=== PATIENT | female | born 1980 | race Two or more races ===

== ENCOUNTER → 2017-10-18 | Outpatient (CLI) | payer MEDICAID ==
[2015-10-10 09:30] VITALS: BMI 44.2
[~2017-10-18] MED LIST: BACDS PO; DEPRESSION MED; IBU600 PO; IBUP800T37 PO; INSU100V24 SUBQ; INSU500V2 SQ; INSULIN; LOR5/325 PO; METF-411 PO; METF-420; NIFE20CA8 PO; NPH,100V12 SQ; ONDA4TAB97 PO; PER PO; PREN-127 PO; SLEEP MED
--- NOTE | 2017-10-18 17:43 | RADIOLOGY IMAGING REPORT ---
[place]AC[place] [facility] [place]IENT NAME: Penny Gleason : 1980 MR: [id number] V: [id number] EXAM DATE: ORDERING PHYSICIAN: ROSANNA ANAND TECHNOLOGIST: [facility] [place] Patient: Penny Gleason : 1980 Visit/Account:[id number] Date of Sevice: 10/18/2017 ADDENDUM #1 Another attempt was made to reach ROSANNA PINEDAIAN at 10/19/2017 4:35 PM.. I was able to relate the results of the examination at that time. Report Dictated By: Vilma Bear MD at 10/19/2017 4:31 PM Report E-Signed By: Vilma Bear MD at 10/19/2017 4:35 PM ORIGINAL REPORT OB ANATOMICAL SURVEY HISTORY: Anatomic survey COMPARISON: None. TECHNIQUE: Transabdominal imaging was performed for assessment of the fetus and maternal pelvic s tructures. Transvaginal imaging was not performed. FINDINGS: Intrauterine gestations: One. presentation: Cephalic. heart rate: 153 bpm. Amniotic fluid volume: Normal; DEMETRIUS 16.4 cm; MVP 4.9 cm. Placenta: Posterior. Uterus: Gravid, otherwise grossly unremarkable where visualized. Maternal adnexa/ovaries: Grossly unremarkable, ovaries not visualized. Cervix: Grossly long and closed. Gestational Parameters: BPD: 5.09, less than 2nd percentile HC: 19.51 cm, less than 2nd percentile AC: 17.42 cm, less than 2nd percentile FL: 3.82 cm, less than 2nd percentile Average ultrasound age (AUA): 22 weeks/ zero days Estimated age based on LMP: 25 weeks/ two days Estimated weight (EFW): 484 grams +/- 71 grams Anatomic Survey: Intracranial structures, 4-chamber heart, stomach, kidneys, urinary bladder, spine, 3-vessel cord and cord insertion are unremarkable. Two upper and two lower extremities visualized. The left ventricul ar outflow tract was not visualized although the right ventricular outflow tract appeared normal IMPRESSION: There is a single viable fetus in cephalic presentation with an estimated gestational age by [facility] ents of 22 weeks. Estimated gestational age by last menstrual period should be 25 weeks and two days . The measurements are less than the 2nd percentile. A message was left with the on-call boiler operator helper for ROSANNA ANAND at 10/18/2017 5:39 PM. Report Dictated By: Vilma Bear MD at 10/18/2017 5:24 PM Report E-Signed By: Vilma Bear MD at 10/18/2017 5:39 PM WSN:[email or web address]
== END ==
LOC: US 10-04 01:53
PROVIDERS: ATTEND Student in an Organized Health Care Education/Training Program
DX: O24.312 Unspecified pre-existing diabetes mellitus in pregnancy, second trimester (principal)
CPT/HCPCS: 76811

== ENCOUNTER → 2017-10-26 | Outpatient (CLI) | payer MEDICAID ==
[2015-10-10 09:30] VITALS: BMI 44.2
--- NOTE | 2017-10-26 15:34 | RADIOLOGY IMAGING REPORT ---
FACILITY: [facility] - [place] PATIENT NAME: Penny Gleason : 1980 MR: [id number] V: [id number] EXAM DATE: ORDERING PHYSICIAN: ROSANNA ANAND TECHNOLOGIST: Location: [facility] Patient: Penny Gleason : 1980 Visit/Account:[id number] Date of Sevice: 10/26/2017 EXAMINATION: Ultrasound transabdominal OB > 14 weeks followup HISTORY: , complete anatomy, 2nd trimester. LVOT not visualized on previous exam. COMPARISON: None. TECHNIQUE: Transabdominal imaging was performed for assessment of the fetus. Transvaginal imaging was not perfor med. FINDINGS: Placenta: Posterior without previa. The inferior placental tip is over 5 cm above the internal cervi mike os. Uterus: gravid, otherwise normal Cervix: Long and closed. Intrauterine gestations: One. presentation: Breech heart rate: Normal and regular at 158 bpm Amniotic fluid index: 17.3 cm Largest amniotic fluid pocket: 5.2 cm The left ventricular outflow tract is unremarkable. Remaining anatomy was visualized on the pr ior exam. IMPRESSION: 1. Single live intrauterine gestation. 2. Left ventricular outflow tract is unremarkable, this completes the anatomic survey. Report Dictated By: Ana Murray MD at 10/26/2017 3:23 PM Report E-Signed By: Ana Murray MD at 10/26/2017 3:30 PM WSN:[email or web address]
== END ==
LOC: US 01:04
PROVIDERS: ATTEND Student in an Organized Health Care Education/Training Program
DX: O24.312 Unspecified pre-existing diabetes mellitus in pregnancy, second trimester (principal)
CPT/HCPCS: 76815

== ENCOUNTER 2018-01-10 06:24 | Observation (INO) | payer MEDICAID ==
[2015-10-10 09:30] VITALS: BMI 44.2
[~2018-01-10 06:24] MED LIST changes: -METF-411 PO; +METF-450 PO
[2018-01-10 06:45] VITALS: BP 143/77
[2018-01-10] MEDS ORDERED: MAGNESIUM SULF 20 GM/500 ML IV 500 ML IV SCH (07:27)
[2018-01-10] MEDS ORDERED: CALCIUM GLUC 10% 100 MG/ML VL IVP ONE (07:30)
[2018-01-10] MEDS ORDERED: MAGNESIUM SUL* 2 GM/50 ML IVPB 50 ML IVPB ONE (07:30)
[2018-01-10] MEDS ORDERED: BETAMETHASONE/ACETATE 6 MG/1ML IM ONLY ONE (07:30)
[2018-01-10] MEDS ORDERED: PENICILLIN G 5 MILLUN/100 ML 100 ML IVPB ONE (07:30)
[2018-01-10] MEDS ORDERED: MAGNESIUM SUL* 4 GM/100 ML BAG 100 ML IVPB ONE (07:30)
[2018-01-10 07:43] LABS: PLATELET COUNT, AUTOMATED 133 K/uL (150-450)
[2018-01-10] MEDS ORDERED: GLY5 FT (07:53)
[2018-01-10] MEDS ORDERED: LEVO50TA86 PO (07:53)
[2018-01-10] MEDS: LR(*) 1000 ML BAG 1,000 ML IV PRN ×2 (07:54→11:48)
[2018-01-10] MEDS: NIFEdipine 10 MG CAP PO PRN ×2 (08:19→09:14)
[2018-01-10] MEDS ORDERED: metFORMIN HCL 500 MG TAB PO SCH ×3 (09:00→17:00)
--- NOTE | 2018-01-10 09:19 | History & Physical ---
History of Present Illness Age of Patient: 37 : 2 Para or TPAL: 1 EDC per LMP: Jan 25, 2018 EDC per U/S: Feb 23, 2018 Estimated Gestational Age: 33.5 Chief Complaint Contractions, Vaginal Bleeding History of Present Illness Patient is a 37-year-old at 33-5/7 weeks gestation by a 1st trimester ultrasound that is not consistent with her LMP who presents to labor and delivery with a chief complaint of Naz contractions and vaginal bleeding. Patient reports that she has been having contractions since yesterday afternoon early evening that have been very irregular and inconsistent. Patient reports that she noticed significant amount of bleeding on her underwear and she eats around 3:00 this morning. Patient reports that she woke up again with more spotting and decided is time to come in the labor and delivery. Patient reports that she's had no bleeding since then. Reports good movement. No loss of amniotic fluid. Patient's history is comp located by transfer of care from [facility] practice residents she did have a 1st trimester ultrasound at [id number] but no ultrasound with a office or hospital until 22 weeks. Patient transferred from the family practice residency at 30 weeks 2 [facility]. Her is complicated by type II diabetes for which she takes 1000 mg of metformin in the morning and 1500 mg in the evening. Patient was started on glyburide during this by Dr. Stark in order to better control the patient's blood sugars. Patient was initially started upon 1st meeting [facility] she is currently on glyburide 7.5 mg twice a day. Patient underwent estimated weight on December 18 that is documented to be 2194 g which is in the 99th percentile with an DEMETRIUS of 17 per verbal checkout with Dr. Stark patient has had a more recent ultrasound the continues to be in the 99th percentile but these records are currently unavailable. History Patient's Blood Type: A Positive Rubella Status: Non-Immune Group B Strep Screen: Unknown Obstetrical History: History of C/S X 1 for intolerance. Desires Repeat Poorly controlled Type 2 Diabetic, Last A1C was 12/13/17 and was 7.1 Past Medical History: Significant for type II diabetes unknown age of diagnosis. Poorly controlled, noncompliant Hypothyroid levothyroxine 50 g by mouth daily Allergies: Coded Allergies: No Known Drug Allergies (Verified , 09/19/08) Social History: FOB = Cornelius Francois, no T/E/D Med Rec Home Meds Active Scripts Metformin Hcl (METFORMIN HCL) 500 Mg Tablet, 500 MG PO QDAY, #60 TAB 3 Refills Prov:LUDY PEÑA 10/13/15 Reported Medications Levothyroxine Sodium (LEVOTHYROXINE SODIUM) 50 Mcg Tablet, 50 MCG PO QDAY, TAB 01/10/18 Glyburide (GLYBURIDE) 5 Mg Tab, 5 MG FT BID, TAB 01/10/18 Vits W-Ca,Fe,Fa(<1MG) ( VITAMINS) 1 Each Tablet, 1 EACH PO DAILY, TAB 09/01/15 Discontinued Reported Medications Trimethoprim/Sulfamethoxazole (Bactrim Ds 160-800 Mg) 1 Ea Tab, 1 EA PO BID for 3 Days, 0 Refills 09/19/08 Ibuprofen (Motrin) 600 Mg Tab, 600 MG PO TID, #15 0 Refills 09/19/08 Discontinued Scripts Oxycodone/Acetaminophen (OXYCODONE/ACETAMINOPHEN 5MG/325 MG) 5 Mg/325 Mg Tab, 1- 2 TAB PO Q4H PRN for PAIN, #30 TAB 0 Refills Prov:STEFFANY OWSUU MD 10/11/15 Ibuprofen (IBUPROFEN) 800 Mg Tablet, 800 MG PO Q8H@00,08,16, #60 TAB 0 Refills Prov:STEFFANY OWUSU MD 10/11/15 Ondansetron Hcl (ZOFRAN) 4 Mg Tablet, 4 MG PO Q6H PRN for NAUSEA/VOMITING, #15 1 Refill Prov:JUSTIN JETT DO 03/01/15 Review of Systems All Systems Reviewed/Normal: Yes, Except as Noted Constitutional: No Fever, No Weight Loss, No Weight Gain, No Chills, No Night Sweats, No Other Neurological: No Syncope, No Confusion, No Weakness, No Dizziness, No Slurred Speech, No Other Eyes: No Vision Change, No Loss of Vision, No Photophobia, No Other ENT: No Hearing Loss, No Sinus Congestion, No Sore Throat, No Ear Ache, No Tinnitus, No Other Cardiovascular: No Chest Pain, No Palpitations, No Orthostatic Hypotension, No Other Respiratory: No Shortness of Breath, No Cough, No Wheezing, No Other Gastrointestinal: No Nausea, No Vomiting, No Diarrhea, No Dysphagia, No Constipation, No Early Satiety, No Hematemesis, No Hematochezia, No Melena, No Abdominal Pain, No Other Genitourinary: No Dysuria, No Hematuria, No Urinary Incontinence, No Other Musculoskeletal: No Pain, No Sprain, No Strain, No Impaired Mobility, No Other Psychiatric: No Depression, No Anxiety, No Other Exam General Exam Vital Signs Vital Signs Date Time Temp Pulse Resp B/P (MAP) Pulse Ox O2 Delivery O2 Flow Rate FiO2 01/10/18 06:45 97.2 61 18 143/77 (99) 97 Room Air General Apperance: Alert/Awake/No Acute Distress Neuro: No Gross deficits Eyes: Normal Extraocular Movement & Vison ENT: Normal Cardiovascular: Regular Rate and Rhythm Respiratory: No Respiratory Distress, Clear to Auscultation Abdomen: Soft, Non-Tender, Non-Distended : Normal Musculoskeletal: No Weakness/Pain Extremities: No Cyanosis,Clubbing or Edema Integumentary: Skin Intact without Lesions or Rash Psychological: Alert & Oriented X3, Appropriate Mood & Affect Vaginal Discharge/Fluid?: Bloody Show Cervical Dialation: 1 Cervical Effacement (%): 50 Cervical Consistency: Moderate Station: -3 Presentation: Vertex Uterine Contractions(Q min): 2 Uterine Contraction Strength: Moderate UC Resting Tone: Soft Fetus Feeling Movement?: Yes Estimated Weight(grams): 150 Heart Tone Variabilty: Moderate FHT Accelerations: 15X15 FHT Decelerations: None FHT Category: I Medical Decision Making Data Points Result Diagram: 01/10/18 0730 Pre-Admit Course Medical Record Review: Yes VTE Prophylasis: Adult Deep Vein Thrombosis/Pulmonary: No Assessment and Plan 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 With recheck of cervix patient's magnesium infusion was stopped and she did receive 20 mg of nifedipine by mouth for contractions with a 2nd dose 30 minutes later. We'll continue to monitor patient's contractions and hopefully achieve tocolyse this with nifedipine. Could consider having patient be monitored for greater than 24 hours and receive her 2nd dose of betamethasone around 8:00 tomorrow morning on 01/11/2018. Will recheck cervix in 2-3 hours if no cervical change we'll monitor contractions and treat symptomatic only. Patient has received 1 L of IV fluid bolus may consider additional IV hydration. Currently stable no need for transport at this time. (3) Diabetes mellitus affecting in third trimester *Optional Permanent Comment*: Pregestational, Type 2 Diabetes Last Edited By: Ludy Peña on Oct 13, 2015 09:01 Onset Date: ~ 10/2015 Status: Chronic Assessment & Plan: Patient is a type II poorly controlled noncompliant diabetic who is currently taking metformin 1000 mg in the morning 1500 mg in the evening with glyburide 7.5 mg a.m. and p.m. Her blood sugar upon presentation this morning was 86. Patient did receive betamethasone which is expected to make patient sugars even more poorly controlled. Will consider the possibility of needing to start sliding scale insulin secondary to vitamins affect. Patient able to tolerate diabetic diet. Will monitor sugars postprandial. If need to change to sliding scale insulin will need to do preprandial in order to calculate sliding scale dosage. We'll continue to monitor patient closely. Will continue patient's home medications accordingly. LUDY PEÑA DO Jan 10, 2018 09:19
[2018-01-10] MEDS ORDERED: glyBURIDE 5 MG TAB PO SCH (09:54)
[2018-01-10] MEDS ORDERED: LEVOTHYROXINE SOD 0.05 MG TAB PO ONE (11:00)
[2018-01-10] MEDS ORDERED: ACETAMINOPHEN 500 MG TAB PO PRN (11:50)
[2018-01-10] MEDS ORDERED: PENICILLIN G 2.5 MILLUN/100 ML 100 ML IVPB SCH (12:00)
[2018-01-10] MEDS: NIFEdipine 10 MG CAP PO SCH ×2 (12:04→15:00)
--- NOTE | 2018-01-10 15:05 | Labor Progress Note ---
Labor Subjective Progress Notes Subjective Reports only feeling contractions every 30-40 minutes. Denies any further vaginal bleeding. Pain less then this morning. Good movement. Feeling Movement?: Yes Vaginal Discharge/Fluid: No Bloody Show, No Clear Fluid, No Bloody Fluid, No Green Tinged Fluid, No Dark Green Fluid, No Mucous, No Small Amount, No Moderate Amount, No Large Amount, No Other Labor Pain: Mild Neurological: No Headache, No Other Eyes: No Visual Disturbances Labor Objective Vital Signs Vital Signs Date Time Temp Pulse Resp B/P (MAP) Pulse Ox O2 Delivery O2 Flow Rate FiO2 01/10/18 06:45 97.2 61 18 143/77 (99) 97 Room Air Cervical Dialation: 1 Cervical Effacement (%): 50 Cervical Consistency: Firm Cervical Position: Posterior Station: -3 Uterine Contraction Strength: Moderate UC Resting Tone: Soft Fetus Heart Tone Variabilty: Moderate FHT Accelerations: 15X15 FHT Decelerations: None FHT Category: I Other Result Diagram: 01/10/18 0730 Assessment and Plan 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 No cervical change since 0800. Discussed options with patient to include 24 monitoring with 2nd dose of Betamethasone tomorrow morning or consider discharge home and follow up as an outpatient in the clinic. Will send pt home with precautions and procardia. Called [facility] and pt is set up to get Betamethasone tomorrow morning at 9 am. (3) Diabetes mellitus affecting in third trimester *Optional Permanent Comment*: Pregestational, Type 2 Diabetes Last Edited By: Ludy Peña on Oct 13, 2015 09:01 Onset Date: ~ 10/2015 Status: Chronic LUDY PEÑA DO Jan 10, 2018 15:05
--- NOTE | 2018-01-10 15:09 | OB/GYN Discharge Summary ---
Discharge Summary Reason for Hosp/Final Diag: (1) 33 weeks gestation of (2) uterine contractions in third trimester, antepartum Hospital Course & Plan: Presented with contractions and was given betamethasone and nifedipine with a significant decrease in contractions. Pt made no cervical change from 8 am to 3 pm. Discussed options with patient. Pt desires to be discharged home. (3) Diabetes mellitus affecting in third trimester *Optional Permanent Comment*: Pregestational, Type 2 Diabetes Last Edited By: Ludy Peña on Oct 13, 2015 09:01 Onset Date: ~ 10/2015 Status: Chronic Lates Vital Signs Vital Signs Date Time Temp Pulse Resp B/P (MAP) Pulse Ox O2 Delivery O2 Flow Rate FiO2 01/10/18 06:45 97.2 61 18 143/77 (99) 97 Room Air Weight (Pounds): 219 Result Diagram: 01/10/18729 Condition: Improved Discharge: Home Home Meds Active Scripts Metformin Hcl (METFORMIN HCL) 500 Mg Tablet, 500 MG PO QDAY, #60 TAB 3 Refills Prov:LUDY PEÑA DO 10/13/15 Reported Medications Levothyroxine Sodium (LEVOTHYROXINE SODIUM) 50 Mcg Tablet, 50 MCG PO QDAY, TAB 01/10/18 Glyburide (GLYBURIDE) 5 Mg Tab, 5 MG FT BID, TAB 01/10/18 Vits W-Ca,Fe,Fa(<1MG) ( VITAMINS) 1 Each Tablet, 1 EACH PO DAILY, TAB 09/01/15 Discontinued Reported Medications Trimethoprim/Sulfamethoxazole (Bactrim Ds 160-800 Mg) 1 Ea Tab, 1 EA PO BID for 3 Days, 0 Refills 09/19/08 Ibuprofen (Motrin) 600 Mg Tab, 600 MG PO TID, #15 0 Refills 09/19/08 Discontinued Scripts Oxycodone/Acetaminophen (OXYCODONE/ACETAMINOPHEN 5MG/325 MG) 5 Mg/325 Mg Tab, 1- 2 TAB PO Q4H PRN for PAIN, #30 TAB 0 Refills Prov:STEFFANY OWUSU MD 10/11/15 Ibuprofen (IBUPROFEN) 800 Mg Tablet, 800 MG PO Q8H@00,08,16, #60 TAB 0 Refills Prov:STEFFANY OWUSU MD 10/11/15 Ondansetron Hcl (ZOFRAN) 4 Mg Tablet, 4 MG PO Q6H PRN for NAUSEA/VOMITING, #15 1 Refill Prov:JUSTIN JETT DO 03/01/15 Discharge Diet: As Tolerates Special Instructions: F/U IN [facility] @0900AM TOMORROW 01/11 LUDY PEÑA DO Jan 10, 2018 15:09
[2018-01-10] MEDS ORDERED: NIFE10CA38 PO (15:19)
[2018-01-10] MEDS ORDERED: NIFE20CA8 PO (15:50)
[2018-01-11] MEDS ORDERED: PENICILLIN G 2.5 MILLUN/100 ML 100 ML IVPB SCH
[2018-01-11] MEDS ORDERED: LEVOTHYROXINE SOD 0.05 MG TAB PO SCH (06:00)
== END 2018-01-10 15:08 | disposition home or self-care (01) ==
LOC: OB 06:24
PROVIDERS: ADMIT Student in an Organized Health Care Education/Training Program; ATTEND Student in an Organized Health Care Education/Training Program
DX: O60.03 Preterm labor without delivery, third trimester (principal); O24.113 Pre-existing type 2 diabetes mellitus, in pregnancy, third trimester; O46.93 Antepartum hemorrhage, unspecified, third trimester; E11.9 Type 2 diabetes mellitus without complications; Z3A.33 33 weeks gestation of pregnancy; Z79.84 Long term (current) use of oral hypoglycemic drugs
CPT/HCPCS: 36416; 81001; 82948; 85025; 86850; 86900; 86901; G0378; G0379; J0702; J3475; J7120

== ENCOUNTER 2018-01-13 08:36 | Inpatient (IN) | payer MEDICAID ==
[2018-01-13] VITALS (31 sets, daily range): BP systolic 96–189; BP diastolic 71–102; Ht 154.9 cm; Wt 99.3 kg
[~2018-01-13] VITALS: Ht 154.9 cm; Wt 99.3 kg
[~2018-01-13 08:36] MED LIST changes: +GLY5 FT; +LEVO50TA86 PO; +NIFE10CA38 PO
[2018-01-13] MEDS ORDERED: METOCLOPRAMIDE 10 MG/2 ML SDV ONE (09:23)
[2018-01-13] MEDS ORDERED: FAMOTIDINE(*) 20MG/50ML PREMIX 50 ML IVPB ONE (09:23)
[2018-01-13] MEDS ORDERED: ceFAZolin(*) 2GM/D5W 50ML 50 ML IVPB ONE ×2 (09:24→10:12)
[2018-01-13 09:38] LABS: PLATELET COUNT, AUTOMATED 157 K/uL (150-450)
[2018-01-13] MEDS ORDERED: ONDANSETRON 4 MG/2 ML VIAL ONE (09:54)
[2018-01-13] MEDS ORDERED: OXYTOCIN 10 UNIT/ML SDV ONE ×2 (09:54→10:50)
[2018-01-13] MEDS ORDERED: MORPHINE PF 5 MG/10 ML AMP ONE (09:55)
[2018-01-13] MEDS ORDERED: fentaNYL CITR 100 MCG/2 ML AMP ONE (09:55)
[2018-01-13] MEDS ORDERED: LR(*) 1000 ML BAG 1,000 ML IV SCH (10:12)
[2018-01-13] MEDS ORDERED: FAMOTIDINE 20 MG/50 ML PREMIX IVPB ONE (10:15)
[2018-01-13] MEDS ORDERED: METOCLOPRAMIDE 10 MG/2 ML SDV IVP ONE (10:15)
--- NOTE | 2018-01-13 10:16 | History & Physical ---
History of Present Illness EDC per LMP: Jan 25, 2018 EDC per U/S: Feb 23, 2018 Chief Complaint Bleeding and decreased movement History of Present Illness 37-year-old at 34w1d by 22wk ultrasound (not consistent with LMP) presents with bleeding and decreased movement. She had come in for regular uterine contractions early this last week. She was given steroids at that time. She then went home and continued to have vaginal bleeding since yesterday, contractions and decreased movement. She had late care and is dated by 22wk US at [facility] that placed her due date at 02/23/18. Based on LMP her due date should be 01/25/18. She has multiple complications. She has DM2 (on Metformin 2500mg daily and Glyburide 5mg BID), gestational HTN, history of , breech presentation and hypothyroid. [facility] She then transferred at 29wks to [facility]. History Patient's Blood Type: A Positive Rubella Status: Non-Immune Group B Strep Screen: Unknown Obstetrical History: G1: 37wk primary CD for NRFHT G2: Present Past Medical History: PMH: See PNR PSH: , colposcopy Allergies: Coded Allergies: No Known Drug Allergies (Verified , 09/19/08) Social History: FOB = Cornelius Francois, no T/E/D Med Rec Home Meds Active Scripts Nifedipine (NIFEDIPINE) 20 Mg Capsule, 20 MG PO Q4-6H PRN for CONTRACTIONS, #20 CAPSULE 1 Refill Prov:LUDY VELAZQUEZ DO 01/10/18 Metformin Hcl (METFORMIN HCL) 500 Mg Tablet, 500 MG PO QDAY, #60 TAB 3 Refills Prov:LUDY VELAZQUEZ DO 10/13/15 Reported Medications Levothyroxine Sodium (LEVOTHYROXINE SODIUM) 50 Mcg Tablet, 50 MCG PO QDAY, TAB 01/10/18 Glyburide (GLYBURIDE) 5 Mg Tab, 5 MG FT BID, TAB 01/10/18 Vits W-Ca,Fe,Fa(<1MG) ( VITAMINS) 1 Each Tablet, 1 EACH PO DAILY, TAB 09/01/15 Discontinued Reported Medications Nifedipine (PROCARDIA) 10 Mg Capsule, 20 MG PO Q4-6H, #20 CAPSULE 1 Refill 01/10/18 Trimethoprim/Sulfamethoxazole (Bactrim Ds 160-800 Mg) 1 Ea Tab, 1 EA PO BID for 3 Days, 0 Refills 09/19/08 Ibuprofen (Motrin) 600 Mg Tab, 600 MG PO TID, #15 0 Refills 09/19/08 Discontinued Scripts Oxycodone/Acetaminophen (OXYCODONE/ACETAMINOPHEN 5MG/325 MG) 5 Mg/325 Mg Tab, 1- 2 TAB PO Q4H PRN for PAIN, #30 TAB 0 Refills Prov:STEFFANY OWUSU MD 10/11/15 Ibuprofen (IBUPROFEN) 800 Mg Tablet, 800 MG PO Q8H@00,08,16, #60 TAB 0 Refills Prov:STEFFANY OWUSU MD 10/11/15 Ondansetron Hcl (ZOFRAN) 4 Mg Tablet, 4 MG PO Q6H PRN for NAUSEA/VOMITING, #15 1 Refill Prov:JUSTIN JETT DO 03/01/15 Review of Systems Constitutional: No Fever Neurological: No Syncope Eyes: No Vision Change Cardiovascular: No Chest Pain Respiratory: No Shortness of Breath Gastrointestinal: No Nausea, No Vomiting, No Diarrhea Genitourinary: No Dysuria Musculoskeletal: No Pain Psychiatric: No Depression, No Anxiety Exam General Exam Vital Signs VS reviewed, BP 142/92 General Apperance: Alert/Awake/No Acute Distress Neuro: No Gross deficits Eyes: Normal Extraocular Movement & Vison Cardiovascular: Regular Rate and Rhythm Respiratory: No Respiratory Distress, Clear to Auscultation Abdomen: Soft, Non-Tender, Non-Distended, Gravid - Non-Tender : Normal Musculoskeletal: No Weakness/Pain Extremities: No Cyanosis,Clubbing or Edema Integumentary: Skin Intact without Lesions or Rash Psychological: Alert & Oriented X3, Appropriate Mood & Affect Cervical Dialation: 1 Cervical Effacement (%): 90 Cervical Consistency: Soft Cervical Position: Mid Presentation: Michael Breech Uterine Contractions(Q min): 8 Fetus Heart Tones: 165 Heart Tone Variabilty: Minimal FHT Accelerations: Absent FHT Decelerations: Late FHT Category: II, III Medical Decision Making Data Points Result Diagram: 01/13/1892401/13/18924 Assessment and Plan Problems: (1) Non-reassuring status Assessment & Plan: 37yo at 34w1d by 22wk ultrasound (38wks by LMP) presents with decreased movement. She has a category 2-3 tracing. She is having recurrent lates. I have recommended urgent delivery. Dr. Weston, sack filler, has also been able to discuss likelihood of shipping baby after delivery if difficulties. She is having normal show. DEMETRIUS 28cm growth is >99%ile. It is unclear of her dating is poor or if she has polyhydramnios and macrosomia. Will proceed with as soon as possible. (2) Gestational hypertension Assessment & Plan: BP is elevated. Will send urine from cath for random Pr:Cr. (3) Diabetes mellitus complicating , antepartum Assessment & Plan: Accucheck is 190. Will monitor . (4) Rubella non-immune status, antepartum Assessment & Plan: MMR . Problem Qualifiers (1) Gestational hypertension: Trimester: third trimester Qualified Codes: O13.3 - Gestational [- induced] hypertension without significant proteinuria, third trimester LIT SANCHES MD Jan 13, 2018 10:16
[2018-01-13] MEDS ORDERED: KETOROLAC 30 MG/ML VIAL ONE (10:49)
--- NOTE | 2018-01-13 11:08 | RADIOLOGY IMAGING REPORT ---
FACILITY: [facility] [place] PATIENT NAME: Penny Gleason : 1980 MR: [id number] V: [id number] EXAM DATE: ORDERING PHYSICIAN: LIT JARRELL TECHNOLOGIST: Location: [facility] [place] Patient: Penny Gleason : 1980 Visit/Account:[id number] Date of Sevice: 01/13/2018 OB LIMITED COMPARISON: None. HISTORY: Provided history is labor, gestational age 34 weeks 1 day. FINDINGS: NUMBER: One.. HEART RATE: Not measured/recorded POSITION: Breech PLACENTA LOCATION: Not assessed. AMNIOTIC FLUID: DEMETRIUS 28.64 cm; MVP 14.83 cm. A single growth parameter was measured on today's study, the abdominal circumference. According to e technologist notes, at this point the study was reportedly stopped by Dr. Jarrell "as they were t aking the patient to deliver". SIZE DATE ABD CIRCUMFERENCE: 36.70 cm 40 weeks 5 days The date of LMP was not provided. The ALISON could not be calculated. IMPRESSION: Limited study which was reportedly terminated prematurely by Dr. Jarrell, reportedly for emergency . There is a single intrauterine in breech presentation. cardiac activity wa s not assessed/recorded. Based on the limited provided images there are findings suggesting large for dates and polyhydramnios. Report Dictated By: Raymond Oliveira at 01/13/2018 10:53 AM Report E-Signed By: Raymond Oliveira at 01/13/2018 11:04 AM WSN:[id number]
[2018-01-13] MEDS ORDERED: DLR(*) 1000 ML BAG 1,000 ML IV PRN ×2 (11:48→11:51)
[2018-01-13] MEDS ORDERED: OXYTOCIN 30 UNIT/LR 500 ML 500 ML IV PRN (11:48)
--- NOTE | 2018-01-13 11:48 | Post Operative Note ---
Operative Note - PROOF TESTER Operative Day Date: Jan 13, 2018 Physicians Surgeon: Wesly Anesthesia: Spinal, Eufemia Chinchilla Diagnosis Pre-Op Diagnosis: IUP at 34w1d by 22wk US with category 3 tracing Poorly controlled GDMA2 Gestational HTN Post-Op Diagnosis: Same Delivery of viable male infant at 1048hrs weighing 3646g, Apgars not available Procedure Procedure(s): RLTCD Specimen Removed:(Maybe N/A): Placenta, umbilical cord gas Fluids Fluids: UOP: 50cc Estimated Blood Loss: 800cc LIT SANCHES MD Jan 13, 2018 11:48
[2018-01-13] MEDS ORDERED: PROMETHAZINE 25 MG/ML 1 ML AMP IVP PRN (11:50)
[2018-01-13] MEDS ORDERED: LANOLIN OINT 7 GM TUBE TP PRN (11:50)
[2018-01-13] MEDS ORDERED: ONDANSETRON 4 MG/2 ML VIAL IV PRN (11:50)
[2018-01-13] MEDS ORDERED: MAGNESIUM HYDROXIDE* 30ML UDCP PO PRN (11:50)
[2018-01-13] MEDS ORDERED: ACETAMINOPHEN 325 MG TAB PO PRN (11:50)
[2018-01-13] MEDS ORDERED: NS(*) 0.9% 1000 ML BAG 1,000 ML IV PRN (11:51)
[2018-01-13] MEDS ORDERED: diphenhydrAMINE 25 MG CAP PO PRN (12:15)
[2018-01-13] MEDS ORDERED: NALBUPHINE HCL 10 MG/ML AMP IVP PRN (12:15)
[2018-01-13] MEDS ORDERED: OXYTOCIN 30 UNIT/D5LR 500 ML 500 ML ONE (12:16)
--- NOTE | 2018-01-13 12:17 | Anesthesia OB Pre-Anes Eval ---
History of Present Illness Anesthesia Start Date: Jan 13, 2018 Anesthesia Start Time: 10:19 OB Anesthesia Diagnosis: spontaneous labor, repeat c/section Current Complication: gestational hypertention, diabetes, obesity : 2 Para: 0 Vital Signs: Vital Signs 01/13/18 12:06 Pulse 65 Resp 16 B/P (MAP) 149/96 (113) Pulse Ox 97 O2 Delivery Nasal Cannula O2 Flow Rate 2.0 Pain Ratin Result Diagram: 01/13/1892401/13/18924 Height (Inches): 61 Weight (Pounds): 219 BMI Calculated: 44.23 Past Medical History Medical History: diabetes, hypertension, obesity Surgical History: Previous Anesthesia: epidural Attended Childbirth Classes?: No Hx Anesthesia Reactions: No Hx Family Anesthesia Reaction: No Home Meds Active Scripts Nifedipine (NIFEDIPINE) 20 Mg Capsule, 20 MG PO Q4-6H PRN for CONTRACTIONS, #20 CAPSULE 1 Refill Prov:LUDY VELAZQUEZ DO 01/10/18 Metformin Hcl (METFORMIN HCL) 500 Mg Tablet, 500 MG PO QDAY, #60 TAB 3 Refills Prov:LUDY VELAZQUEZ DO 10/13/15 Reported Medications Levothyroxine Sodium (LEVOTHYROXINE SODIUM) 50 Mcg Tablet, 50 MCG PO QDAY, TAB 01/10/18 Glyburide (GLYBURIDE) 5 Mg Tab, 5 MG FT BID, TAB 01/10/18 Vits W-Ca,Fe,Fa(<1MG) ( VITAMINS) 1 Each Tablet, 1 EACH PO DAILY, TAB 09/01/15 Discontinued Reported Medications Nifedipine (PROCARDIA) 10 Mg Capsule, 20 MG PO Q4-6H, #20 CAPSULE 1 Refill 01/10/18 Trimethoprim/Sulfamethoxazole (Bactrim Ds 160-800 Mg) 1 Ea Tab, 1 EA PO BID for 3 Days, 0 Refills 09/19/08 Ibuprofen (Motrin) 600 Mg Tab, 600 MG PO TID, #15 0 Refills 09/19/08 Discontinued Scripts Oxycodone/Acetaminophen (OXYCODONE/ACETAMINOPHEN 5MG/325 MG) 5 Mg/325 Mg Tab, 1- 2 TAB PO Q4H PRN for PAIN, #30 TAB 0 Refills Prov:STEFFANY OWUSU MD 10/11/15 Ibuprofen (IBUPROFEN) 800 Mg Tablet, 800 MG PO Q8H@00,08,16, #60 TAB 0 Refills Prov:STEFFANY OWUSU MD 10/11/15 Ondansetron Hcl (ZOFRAN) 4 Mg Tablet, 4 MG PO Q6H PRN for NAUSEA/VOMITING, #15 1 Refill Prov:JUSTIN JETT DO 03/01/15 Allergies: Coded Allergies: No Known Drug Allergies (Verified , 09/19/08) Anesthesia OB ROS Neurological: No migraines/headaches, No seizures, No neuropathy, No other ENT: Denies Tooth caps, Denies Loose teeth, Denies Chipped teeth, Denies Dentures, Denies Bridges, Denies Retainers, Denies Veneers, Denies Implants, Denies Tongue ring, Denies Other Pulmonary: No asthma, No smoker (pks/day/yrs), No other Airway Class: lll Cardiovascular ROS: other (HTN) GI ROS: NPO Last Solids Date: Jan 13, 2018 Last Solids Time: 08:00 ROS: Other (Obese) Endocrine ROS: diabetes, thyroid disorder ASA Classification: 3 Assessment and Plan Anesthesia Plan: STEFANIE Anesthesia Stop Day: Jan 13, 2018 Anesthesia Stop Time: 11:50 TANESHA SANTANA CRNA Jan 13, 2018 12:17
[2018-01-13] MEDS ORDERED: IBUP800T37 PO (12:26)
[2018-01-13] MEDS ORDERED: OXYC-865 PO (12:26)
[2018-01-13] MEDS ORDERED: LABETALOL HCL 100 MG/20ML VIAL ONE (12:32)
[2018-01-13] MEDS: LABETALOL HCL 100 MG/20ML VIAL IVP PRN ×3 (12:47→13:38)
[2018-01-13] MEDS: INSULIN HUM REG IV PRN (12:56)
[2018-01-13] MEDS: NS 0.9% IV PRN (12:56)
--- NOTE | 2018-01-13 13:34 | OB/GYN Progress Note ---
OB Subjective Progress Notes Subjective Pt is feeling ok. She complains of being dizzy, but otherwise ok. OB Objective Physical Exam Vital Signs Date Time Temp Pulse Resp B/P (MAP) Pulse Ox O2 Delivery O2 Flow Rate FiO2 01/13/18 12:10 97.8 63 16 161/95 (117) Nasal Cannula 2.0 01/13/18 12:06 97 General Appearance: Alert/Awake/No Acute Distress Neurological: No Gross deficits Eyes: Normal Extraocular Movement & Vison Cardiovascular: Normal Rhythm & Peripheral Pulses, Regular Rate and Rhythm Respiratory: No Respiratory Distress, Clear to Auscultation Abdomen: Soft, Non-Tender, Non-Distended, Fundus Firm Extremities: No Cyanosis,Clubbing or Edema Integumentary: Skin Intact without Lesions or Rash Psychological: Alert & Oriented X3, Appropriate Mood & Affect Result Diagram: 01/13/18 1257 01/13/18 0925 Assessment and Plan Problems: (1) Preeclampsia Assessment & Plan: Preeclampsia, now with severe BP postoperatively. Will initiate Magnesium, also using labetalol to get BP down to non-severe range. (2) Diabetes mellitus complicating , antepartum Assessment & Plan: Insulin drip started. Will maintain for at least the first 24 hours. Baby is having blood sugar issues, and will be transferred to [facility] for NICU care. (3) Rubella non-immune status, antepartum Assessment & Plan: MMR . Problem Qualifiers (1) Preeclampsia: Trimester: third trimester Qualified Codes: O14.93 - Unspecified pre- eclampsia, third trimester LIT SANCHES MD Jan 13, 2018 13:34
[2018-01-13] MEDS ORDERED: MAGNESIUM SUL* 4 GM/100 ML BAG 100 ML IVPB ONE (13:35)
[2018-01-13] MEDS: MAGNESIUM SULF 20 GM/500 ML IV 500 ML IV SCH ×2 (14:09→23:50)
[2018-01-13] MEDS: KETOROLAC 30 MG/ML VIAL IVP SCH ×2 (17:09→23:11)
[2018-01-13] MEDS: FAMOTIDINE 20 MG TAB PO SCH (21:20)
[2018-01-13] MEDS: DOCUSATE CALCIUM 240 MG CAP PO SCH (21:20)
--- NOTE | 2018-01-13 22:39 | OPERATIVE REPORT 1 ---
EVENT DATE: January 13, 2018 SURGEON: Deya Jarrell MD ANESTHESIA: Spinal by Eufemia Chinchilla CRNA. PREOPERATIVE DIAGNOSES 1. Intrauterine at 34 weeks one day, presenting with category 3 tracing. 2. Poorly controlled type 2 diabetes. 3. Preeclampsia without severe features. POSTOPERATIVE DIAGNOSES 1. Intrauterine at 34 weeks one day, presenting with category 3 tracing. 2. Poorly controlled type 2 diabetes. 3. Preeclampsia without severe features. 4. Delivery of a viable male at 1048 hours, weighing 3646 g with Apgars of 4 at one minute, 6 at five minutes, and 8 at eight minutes. PROCEDURE PERFORMED Repeat low transverse delivery. SPECIMENS REMOVED Placenta and umbilical cord gas. URINE OUTPUT 50 mL ESTIMATED BLOOD LOSS 800 mL INDICATIONS FOR PROCEDURE This patient is a 37-year-old, 2, para 1, who presented to Labor and Delivery with complaints of vaginal bleeding and decreased movement. Her was complicated by poorly controlled type 2 diabetes, preeclampsia without severe features, history of , hypothyroid, and breech presentation. At the time of presentation, the heart tones were ranging between category 2 and category 3. She initially presented with a heart rate in the 160s with minimal variability and recurrent late decelerations. She then developed a short period of time where the variability did improve, and the baseline dropped down to the 150s. However, her heart tones reverted back to category 3 tracing. She was, therefore, consented for a repeat delivery. The infant was noted to be in the breech presentation by ultrasound with an DEMETRIUS of 28 cm and estimated weight greater than 99 percentile. Please see History and Physical for full details. DESCRIPTION OF PROCEDURE The patient was properly identified and taken to the operating room. She was administered a spinal anesthetic and placed in the supine position with a leftward tilt. A Esqueda catheter was then placed into the bladder. The abdomen was prepped and draped in the usual fashion for lower abdominal surgery. Adequate anesthesia was confirmed, and a Pfannenstiel incision was made over the lower abdomen with excision of her prior scar. This incision was then carried down to the level of the rectus fascia which was nicked in the midline and extended bilaterally. The rectus fascia was then from the underlying rectus muscle. The peritoneum was then identified and entered, and the incision was extended in a blunt fashion. Once adequate exposure was confirmed, the vesicouterine peritoneum was brought down and reflected off the lower uterine segment. A low transverse incision was then made on the lower uterine segment revealing intact membranes. These membranes were ruptured, and copious amniotic fluid was relieved. There was at least 2 L of amniotic fluid retrieved at that time. The 's buttocks started initially presenting to the uterine incision, but with fundal pressure, the head started twisting towards the patient's left abdomen, allowing the to rotate into a transverse presentation. I was then able to revert the position back to kimberly breech presentation, and the buttocks were able to be delivered without difficulty. The was then delivered up to the level of the axilla. The anterior arm, which was the 's right arm, was swept across the body without difficulty. The infant was then rotated in 180 degrees, and the other arm was able to be brought across the chest. The infant's vertex then delivered easily. The infant did have spontaneous cry initially, but did have secondary apnea. Therefore, the cord was clamped times two and cut, and the infant was passed to Dr. Weston in guarded condition. One segment of cord was then obtained and set aside to obtain cord blood gases. Cord blood was then obtained. Pitocin was started in the IV fluid to help firm the uterus. The placenta was then removed manually intact and passed off the table and sent to Pathology. The uterus was then exteriorized without difficulty. The uterus was explored for any remaining clots or debris. The uterine incision was reapproximated using an 0 Vicryl in running locking fashion. A second imbricating layer was then used to close the uterine incision with an 0 Monocryl. Hemostasis was assured, and the uterus was replaced in the abdominal cavity. The pericolic gutters were cleared of clots and debris. The uterine incision was again inspected and required one additional [id number] suture to allow for adequate hemostasis. The peritoneum was then reapproximated using a 3-0 Monocryl, followed by reapproximation of the rectus muscle. The rectus muscle was copiously irrigated, made hemostatic. The rectus fascia was then reapproximated using an 0 Vicryl. The subcutaneous tissue was irrigated and made hemostatic. A 3-0 Monocryl was then utilized to reapproximate the subcutaneous tissue, and the skin was closed with INSORB tammy. The patient tolerated this procedure well and recovered in Labor and Delivery. Her infant was taken to the Nursery, stabilized, and prepared for transport. At the time of this dictation, Dr. Weston did deem it appropriate for this , macrosomic to be transported for higher level of care. BEBO
[2018-01-14] VITALS (20 sets, daily range): BP systolic 112–177; BP diastolic 73–98
[2018-01-14] MEDS: NS 0.9% IV PRN ×2 (03:36→13:06)
[2018-01-14] MEDS: INSULIN HUM REG IV PRN ×2 (03:36→13:06)
[2018-01-14] MEDS: KETOROLAC 30 MG/ML VIAL IVP SCH (05:10)
[2018-01-14 06:28] LABS: PLATELET COUNT, AUTOMATED 166 K/uL (150-450)
[2018-01-14] MEDS: SIMETHICONE 80 MG CHEW CHEW PRN ×2 (07:27→21:27)
--- NOTE | 2018-01-14 08:27 | OB/GYN Progress Note ---
OB Subjective Progress Notes Subjective Penny is primarily complaining about discomfort. She reports having generalized abdominal pain. She also notes a discomfort with movement right below her sternum. She denies headache or visual changes. She did sit up at the edge of the bed last night and felt dizzy. She has not been up to walk yet. She is still on magnesium and insulin drip. She denies nausea or vomiting. Her last dose of percocet recorded was 2100hrs. Used language line for this discussion. OB Objective Physical Exam Vital Signs Date Time Temp Pulse Resp B/P (MAP) Pulse Ox O2 Delivery O2 Flow Rate FiO2 01/14/18 07:38 98.2 88 16 118/81 (93) 94 Nasal Cannula 1.0 Intake and Output 01/14/18 07:00 Intake Total 3491 ml Output Total 1467 ml Balance 2024 ml Intake IV Total 3491 ml Output Urine Total 667 ml Estimated Blood Loss 800 ml General Appearance: Alert/Awake/No Acute Distress Neurological: No Gross deficits Eyes: Normal Extraocular Movement & Vison Cardiovascular: Normal Rhythm & Peripheral Pulses, Regular Rate and Rhythm Respiratory: No Respiratory Distress, Clear to Auscultation Abdomen: Fundus Firm, Tender (throught there is generalized tenderness, but no rebound or guarding; abdomen is soft) Extremities: No Cyanosis,Clubbing or Edema Integumentary: Skin Intact without Lesions or Rash Psychological: Alert & Oriented X3, Appropriate Mood & Affect Result Diagram: 01/14/1861401/14/18614 Assessment and Plan Problems: (1) Preeclampsia Assessment & Plan: Blood pressures have been in a safe range. She is still on magnesium until 1400hrs today. She is not yet diuresing. She has upper abdominal pain, but not liver pain. Labs were normal with regards to preeclampsia. Will continue to monitor closely. (2) Postoperative anemia due to acute blood loss Assessment & Plan: POD#1 s/p RLTCD. She does have anemia today, part of which I am sure is dilutional since she has not yet started diuresing. However, she appears pale and weak. Will transfuse two units today and see how she is feeling after that. (3) Diabetes mellitus complicating , antepartum Assessment & Plan: Glucose is much better controlled with insulin drip. Once she starts feeling better, will transition back to oral Metformin. (4) care following delivery Onset Date: ~ 10/10/2015 Status: Acute (5) Rubella non-immune status, antepartum Assessment & Plan: MMR . Problem Qualifiers (1) Preeclampsia: Trimester: third trimester Qualified Codes: O14.93 - Unspecified pre- eclampsia, third trimester LIT SANCHES MD Jan 14, 2018 08:27
[2018-01-14] MEDS ORDERED: diphenhydrAMINE 50 MG/ML VIAL IVP ONE (08:30)
[2018-01-14] MEDS ORDERED: INFLUENZA VIRUS VAC 0.5ML SYR IM ONLY ONE (09:00)
[2018-01-14] MEDS ORDERED: MEASLES,MUMP,RUBELLA VAC 0.5ML SUBQ ONE (09:00)
[2018-01-14] MEDS ORDERED: ENOXAPARIN 40 MG/0.4ML SYR SC SCH (09:00)
[2018-01-14] MEDS ORDERED: DIPHTH/TETANUS/ACEL. PERTUSSIS IM ONLY ONE (09:00)
[2018-01-14] MEDS ORDERED: NS(*) 0.9% 500 ML BAG 500 ML ONE (09:02)
[2018-01-14] MEDS: MAGNESIUM SULF 20 GM/500 ML IV 500 ML IV SCH ×2 (09:34→19:34)
[2018-01-14] MEDS: DOCUSATE CALCIUM 240 MG CAP PO SCH ×2 (10:27→21:27)
[2018-01-14] MEDS: FAMOTIDINE 20 MG TAB PO SCH ×2 (10:27→21:27)
[2018-01-14] MEDS: IBUPROFEN 800 MG TAB PO SCH ×2 (11:34→19:09)
[2018-01-14] MEDS ORDERED: NIFEdipine 10 MG CAP PO ONE (13:50)
--- NOTE | 2018-01-14 14:04 | Anesthesia Post Eval Note ---
Anesthesia Post Eval Note Vital Signs 01/14/18 01/14/18 01/14/18 07:38 12:45 13:30 Temp 98.0 Pulse 90 Resp 18 B/P (MAP) 174/85 Pulse Ox 95 O2 Delivery Nasal Cannula O2 Flow Rate 1.0 Pt able to participate in Eval: Yes Cardiovascular Status: Satisfactory Respiratory Status: Satisfactory Pain Managment: Satisfactory PO Nausea/Vomiting: Satisfactory Temperature Management: Satisfactory Mental Status: Satisfactory, Alert, Oriented X3 Post-Op Hydration Status: Satisfactory, Tolerating PO Well, Voiding w/o Difficu lty Anesthesia Type: TANESHA LOYOLA CRNA Jan 14, 2018 14:04
--- NOTE | 2018-01-14 14:10 | OB/GYN Progress Note ---
OB Subjective Progress Notes Subjective Pt is doing better. Her pain is much better controlled with Percocet. She has some right incisional pain but not bad. She denies preeclampsia symptoms. OB Objective Physical Exam Vital Signs Date Time Temp Pulse Resp B/P (MAP) Pulse Ox O2 Delivery O2 Flow Rate FiO2 01/14/18 13:30 98.0 90 18 174/85 01/14/18 12:45 95 01/14/18 07:38 Nasal Cannula 1.0 Intake and Output 01/14/18 07:00 Intake Total 3491 ml Output Total 1512 ml Balance 1979 ml IV Total 3491 ml Output Urine Total 712 ml Estimated Blood Loss 800 ml General Appearance: Alert/Awake/No Acute Distress Neurological: No Gross deficits Eyes: Normal Extraocular Movement & Vison Cardiovascular: Normal Rhythm & Peripheral Pulses, Regular Rate and Rhythm Respiratory: No Respiratory Distress, Clear to Auscultation Abdomen: Soft, Non-Tender, Non-Distended, Fundus Firm Incision: Clean, Dry, Intact Extremities: No Cyanosis,Clubbing or Edema Integumentary: Skin Intact without Lesions or Rash Psychological: Alert & Oriented X3, Appropriate Mood & Affect Result Diagram: 01/14/1861401/14/18614 Assessment and Plan Problems: (1) Preeclampsia Assessment & Plan: BP has started to increase again since her second unit of blood. Will give short acting procardia x 1 and start Procardia XL 60mg/day. Will stop magnesium once blood pressure is improved. She is also now diuresing. (2) Postoperative anemia due to acute blood loss Assessment & Plan: Just finishing second unit of PRBC. Will check CBC again 6 hours after. (3) Diabetes mellitus complicating , antepartum Assessment & Plan: Will continue insulin drip until midnight. Will restart Metformin 1000mg am and 1500mg pm. We had a long discussion about the importance of keeping sugars below 180 for healing and risk of infection. She expresses understanding of this. (4) care following delivery Onset Date: ~ 10/10/2015 Status: Acute (5) Rubella non-immune status, antepartum Assessment & Plan: MMR . Problem Qualifiers (1) Preeclampsia: Trimester: third trimester Qualified Codes: O14.93 - Unspecified pre- eclampsia, third trimester LIT SANCHES MD Jan 14, 2018 14:10
[2018-01-14] MEDS: NIFEdipine XL 30 MG TABCR PO SCH (14:45)
[2018-01-14] MEDS ORDERED: NS 0.9% IV PRN ×2 (18:08→20:38)
[2018-01-14] MEDS ORDERED: INSULIN HUM REG IV PRN ×2 (18:08→20:38)
[2018-01-14] MEDS ORDERED: metFORMIN HCL 500 MG TAB PO SCH (19:00)
[2018-01-14] MEDS ORDERED: metFORMIN HCL 500 MG TAB PO ONE ×2 (19:00)
[2018-01-14] MEDS ORDERED: LR(*) 1000 ML BAG 2,000 ML ONE (19:25)
[2018-01-14 22:13] LABS: PLATELET COUNT, AUTOMATED 150 K/uL (150-450)
[2018-01-15 00:25] VITALS: BP 158/102
[2018-01-15 01:00] VITALS: BP 162/86
[2018-01-15 01:42] VITALS: BP 145/69
[2018-01-15 02:00] VITALS: BP 135/82
[2018-01-15] MEDS ORDERED: INSULIN HUM REG IV PRN (02:14)
[2018-01-15] MEDS ORDERED: NS 0.9% IV PRN (02:14)
[2018-01-15] MEDS: IBUPROFEN 800 MG TAB PO SCH ×2 (02:34→11:21)
[2018-01-15] MEDS ORDERED: DLR(*) 1000 ML BAG 1,000 ML IV PRN (02:41)
[2018-01-15] MEDS ORDERED: NS(*) 0.9% 1000 ML BAG 1,000 ML IV PRN (02:41)
[2018-01-15] MEDS ORDERED: INSULIN HUM REG 100 UN/ML 3 ML 100 UNIT in NS(*) 0.9% 100 ML BAG 100 ML IV PRN ×2 (02:41→02:55)
[2018-01-15 03:36] VITALS: BP 142/95
[2018-01-15 06:23] LABS: PLATELET COUNT, AUTOMATED 156 K/uL (150-450)
--- NOTE | 2018-01-15 06:23 | OB/GYN Progress Note ---
OB Subjective Progress Notes Subjective Pt is feeling well. She would like to be discharged today to be with her baby. She is ambulating. Her stone was just taken out. She denies preeclampsia symptoms. OB Objective Physical Exam Vital Signs Date Time Temp Pulse Resp B/P (MAP) Pulse Ox O2 Delivery O2 Flow Rate FiO2 01/15/18 03:36 99.2 106 16 142/95 (111) 93 Nasal Cannula 0.5 Intake and Output 01/15/18 06:59 Intake Total 2894.6 ml Output Total 5235 ml Balance -2340.4 ml Intake Oral 240 ml IV Total 1654.6 ml Blood Product 1000 ml Output Urine Total 5235 ml General Appearance: Alert/Awake/No Acute Distress Neurological: No Gross deficits Eyes: Normal Extraocular Movement & Vison Cardiovascular: Normal Rhythm & Peripheral Pulses, Regular Rate and Rhythm Respiratory: No Respiratory Distress, Clear to Auscultation Abdomen: Soft, Non-Tender, Non-Distended, Fundus Firm Incision: Clean, Dry, Intact Extremities: No Cyanosis,Clubbing or Edema Integumentary: Skin Intact without Lesions or Rash Psychological: Alert & Oriented X3, Appropriate Mood & Affect Result Diagram: 01/14/18 2200 01/14/18 0615 Assessment and Plan Problems: (1) care following delivery Onset Date: ~ 10/10/2015 Status: Acute Assessment & Plan: Will discharge today so she can go to [facility] NICU where her baby is. She is still in need of close monitoring, but will be able to do this over the phone and with the help of the [facility] nurses. She needs to come to [place] in one week at the latest for an incision, glucose and BP check. (2) Preeclampsia Assessment & Plan: BP are improved after diuresing and with Procardia 60XL. Will discharge with Procardia 60XL. She will have an RN at [facility] check her BP each day and will call the clinic on 01/19/18 with her BP numbers. (3) Postoperative anemia due to acute blood loss Assessment & Plan: She received a transfusion of 2 units PRBC. Her Hgb is improved. She also needs to continue vitamin. (4) Diabetes mellitus complicating , antepartum Assessment & Plan: She is off of insulin drip. Will resume Metformin 1000mg AM and 1500mg PM. We had a long discussion about the fact that insulin may be necessary. She was given information about diabetic nutrition. She will continue her fasting and 1hr postprandial checks and call with her sugars on 01/19/18 to the clinic. She will call sooner if glucose >180. (5) Rubella non-immune status, antepartum Assessment & Plan: MMR prior to discharge. Problem Qualifiers (1) Preeclampsia: Trimester: third trimester Qualified Codes: O14.93 - Unspecified pre- eclampsia, third trimester LIT SANCHES MD Jan 15, 2018 05:45
--- NOTE | 2018-01-15 06:24 | OB/GYN Discharge Summary ---
Discharge Summary Reason for Hosp/Final Diag: (1) care following delivery Onset Date: ~ 10/10/2015 Status: Acute Hospital Course & Plan: Will discharge today so she can go to [facility] where her baby is. She is still in need of close monitoring, but will be able to do this over the phone and with the help of the [facility] nurses. She needs to come to [place] in one week at the latest for an incision, glucose and BP check. (2) Preeclampsia Hospital Course & Plan: BP are improved after diuresing and with Procardia 60XL. Will discharge with Procardia 60XL. She will have an RN at [facility] check her BP each day and will call the clinic on 01/19/18 with her BP numbers. (3) Postoperative anemia due to acute blood loss Hospital Course & Plan: She received a transfusion of 2 units PRBC. Her Hgb is improved. She also needs to continue vitamin. (4) Diabetes mellitus complicating , antepartum Hospital Course & Plan: She is off of insulin drip. Will resume Metformin 1000mg AM and 1500mg PM. We had a long discussion about the fact that insulin may be necessary. She was given information about diabetic nutrition. She will continue her fasting and 1hr postprandial checks and call with her sugars on 01/19/18 to the clinic. She will call sooner if glucose >180. (5) Rubella non-immune status, antepartum Hospital Course & Plan: MMR prior to discharge. [place] Vital Signs Vital Signs Date Time Temp Pulse Resp B/P (MAP) Pulse Ox O2 Delivery O2 Flow Rate FiO2 01/15/18 03:36 99.2 106 16 142/95 (111) 93 Nasal Cannula 0.5 Weight (Pounds): 219 Result Diagram: 01/14/18 2200 01/14/18 0615 Condition: Improved Discharge: Home, Self Senior Care Meds Active Scripts Oxycodone Hcl/Acetaminophen (PERCOCET 5-325 MG TABLET) 1 Each Tablet, 1 TAB PO Q4-6H PRN for pain, #30 TAB 0 Refills Prov:LIT SANCHES MD 01/13/18 Nifedipine (NIFEDIPINE) 20 Mg Capsule, 20 MG PO Q4-6H PRN for CONTRACTIONS, #20 CAPSULE 1 Refill Prov:LUDY VELAZQUEZ DO 01/10/18 Metformin Hcl (METFORMIN HCL) 500 Mg Tablet, 500 MG PO QDAY, #60 TAB 3 Refills Prov:LUDY VELAZQUEZ 10/13/15 Reported Medications Levothyroxine Sodium (LEVOTHYROXINE SODIUM) 50 Mcg Tablet, 50 MCG PO QDAY, TAB 01/10/18 Glyburide (GLYBURIDE) 5 Mg Tab, 5 MG FT BID, TAB 01/10/18 Vits W-Ca,Fe,Fa(<1MG) ( VITAMINS) 1 Each Tablet, 1 EACH PO DAILY, TAB 09/01/15 Discontinued Reported Medications Nifedipine (PROCARDIA) 10 Mg Capsule, 20 MG PO Q4-6H, #20 CAPSULE 1 Refill 01/10/18 Trimethoprim/Sulfamethoxazole (Bactrim Ds 160-800 Mg) 1 Ea Tab, 1 EA PO BID for 3 Days, 0 Refills 09/19/08 Ibuprofen (Motrin) 600 Mg Tab, 600 MG PO TID, #15 0 Refills 09/19/08 Discontinued Scripts Oxycodone/Acetaminophen (OXYCODONE/ACETAMINOPHEN 5MG/325 MG) 5 Mg/325 Mg Tab, 1- 2 TAB PO Q4H PRN for PAIN, #30 TAB 0 Refills Prov:STEFFANY OWUSU MD 10/11/15 Ibuprofen (IBUPROFEN) 800 Mg Tablet, 800 MG PO Q8H@00,08,16, #60 TAB 0 Refills Prov:STEFFANY OWUSU MD 10/11/15 Ondansetron Hcl (ZOFRAN) 4 Mg Tablet, 4 MG PO Q6H PRN for NAUSEA/VOMITING, #15 1 Refill Prov:JUSTIN JETT DO 03/01/15 Follow up Referrals: [facility] - In One Week @ [facility] Discharge Diet: As Tolerates (Diabetic) Discharge Activity: No Heavy Lifting > 10lb, Pelvic Rest Copies to: ULISES LUNA MD ; Problem Qualifiers (1) Preeclampsia: Trimester: third trimester Qualified Codes: O14.93 - Unspecified pre- eclampsia, third trimester LIT SANCHES MD Jan 15, 2018 06:24
[2018-01-15] MEDS ORDERED: metFORMIN HCL 500 MG TAB PO SCH (07:00)
[2018-01-15 07:40] VITALS: BP 151/89
[2018-01-15] MEDS ORDERED: ENOXAPARIN 40 MG/0.4ML SYR SC SCH (09:00)
[2018-01-15] MEDS: NIFEdipine XL 30 MG TABCR PO SCH (09:34)
[2018-01-15] MEDS: DOCUSATE CALCIUM 240 MG CAP PO SCH (09:35)
[2018-01-15] MEDS: FAMOTIDINE 20 MG TAB PO SCH (09:35)
[2018-01-15] MEDS ORDERED: NIFE60TA95 PO (10:55)
[2018-01-15] MEDS ORDERED: DIPHTH/TETANUS/ACEL. PERTUSSIS IM ONLY ONE (12:00)
[2018-01-15] MEDS ORDERED: MEASLES,MUMP,RUBELLA VAC 0.5ML SUBQ ONE (12:00)
[2018-01-15] MEDS ORDERED: INFLUENZA VIRUS VAC 0.5ML SYR IM ONLY ONE (12:00)
== END 2018-01-15 13:10 | disposition home or self-care (01) | DRG 787 ==
LOC: OB 08:36 → OBSVTOIN 08:36 → OB 08:56
PROVIDERS: ADMIT Obstetrics & Gynecology; ATTEND Obstetrics & Gynecology
PROC: 10D00Z1 Extraction of Products of Conception, Low, Open Approach (ICD-10-PCS; principal; 2018-01-13 10:43)
PROC: 30233N1 Transfusion of Nonautologous Red Blood Cells into Peripheral Vein, Percutaneous Approach (ICD-10-PCS; 2018-01-14)
DX: O14.04 Mild to moderate pre-eclampsia, complicating childbirth (principal); D62 Acute posthemorrhagic anemia; Z68.41 Body mass index [BMI] 40.0-44.9, adult; O24.12 Pre-existing type 2 diabetes mellitus, in childbirth; O67.9 Intrapartum hemorrhage, unspecified; O34.211 Maternal care for low transverse scar from previous cesarean delivery; O90.81 Anemia of the puerperium; O99.284 Endocrine, nutritional and metabolic diseases complicating childbirth; O32.1XX0 Maternal care for breech presentation, not applicable or unspecified; O99.214 Obesity complicating childbirth; E66.9 Obesity, unspecified; E11.65 Type 2 diabetes mellitus with hyperglycemia; E03.9 Hypothyroidism, unspecified; Z23 Encounter for immunization; Z3A.34 34 weeks gestation of pregnancy; Z37.0 Single live birth; Z79.84 Long term (current) use of oral hypoglycemic drugs
CPT/HCPCS: 36415; 36416; 76815; 81001; 82040; 82247; 82310; 82374; 82435; 82565; 82570; 82947; 82948; 83735; 84075; 84132; 84155; 84156; 84295; 84450; 84460; 84520; 85025; 85027; 86703; 86850; 86900; 86901; 86920; 88307; 90471; 90472; 90674; 90707; 90715; A4353; J1200; J1650; J1815; J1885; J2270; J2405; J2590; J3010; J3475; J3490; J7030; J7040; J7050; P9016

== ENCOUNTER 2018-07-22 15:43 | Inpatient (IN) | payer SELFPAY ==
[~2018-07-22] VITALS: Ht 162.6 cm; Wt 87.1 kg
[~2018-07-22 15:43] MED LIST changes: +NIFE60TA95 PO; +OXYC-865 PO
--- NOTE | 2018-07-22 15:56 | ER Report ---
History and Physical Time Seen By MD: 15:54 Hx. of Stated Complaint: FEVER/CHILLS X 1 DAY, SOB, ABD PAIN, VOMITING ONCE 20 MIN MANAGER CHANNEL, HEADACHE, BODY ACHES Allergies: Coded Allergies: No Known Drug Allergies (Verified , 07/22/18) Home Meds Active Scripts Nifedipine (NIFEDIPINE ER) 60 Mg Tab.er.24, 60 MG PO QDAY, #45 TAB 1 Refill Prov:LUDY VELAZQUEZ DO 01/15/18 Oxycodone Hcl/Acetaminophen (PERCOCET 5-325 MG TABLET) 1 Each Tablet, 1 TAB PO Q4-6H PRN for pain, #30 TAB 0 Refills Prov:LIT SANCHES MD 01/13/18 Ibuprofen (IBUPROFEN) 800 Mg Tablet, 1 TAB PO Q8H PRN for pain, #30 TAB 0 Refills TAKE WITH FOOD EVERY 8 HOURS Prov:LIT SANCHES MD 01/13/18 Metformin Hcl (METFORMIN HCL) 500 Mg Tablet, 500 MG PO QDAY, #60 TAB 3 Refills Prov:LUDY VELAZQUEZ DO 10/13/15 Reported Medications Levothyroxine Sodium (LEVOTHYROXINE SODIUM) 50 Mcg Tablet, 50 MCG PO QDAY, TAB 01/10/18 Vits W-Ca,Fe,Fa(<1MG) ( VITAMINS) 1 Each Tablet, 1 EACH PO DAILY, TAB 09/01/15 Hx Smoking: No Smoking Status: Never Smoker Exposure to Second Hand Smoke?: No Constitutional Vital Sign - Last 24 Hours 07/22/18 15:49 Temp 101.8 Pulse 120 Resp 34 B/P (MAP) 157/137 Pulse Ox 90 O2 Delivery Room Air Medical Decision Making Data Points Laboratory Hematology Test 07/22/18 15:55 Chemistry Test 07/22/18 15:55 Depart Departure Latest Vital Signs Vital Signs Date Time Temp Pulse Resp B/P (MAP) Pulse Ox O2 Delivery O2 Flow Rate FiO2 07/22/18 15:49 101.8 120 34 157/137 90 Room Air Condition: Stable Disposition: HOME OR SELF-CARE TATYANA WESLEY DO July 22, 2018 15:56
[2018-07-22] MEDS: NS(*) 0.9% 1000 ML BAG 1,000 ML IV ONE ×2 (16:01→16:09)
[2018-07-22] MEDS ORDERED: ONDANSETRON 4 MG/2 ML VIAL IVP ONE (16:05)
[2018-07-22] MEDS: NS 0.9% IV ONE ×2 (16:09→17:02)
[2018-07-22 16:20] LABS: PLATELET COUNT, AUTOMATED 124 K/uL (150-450)
[2018-07-22] MEDS ORDERED: IBUPROFEN 800 MG TAB PO ONE (16:20)
--- NOTE | 2018-07-22 16:22 | ER Report ---
History and Physical Time Seen By MD: 16:07 Hx. 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 According to phone director quality assurance, the patient began having aches and chills, feeling febrile last night around 2 AM, progressively getting worse through the night. Patient is a type II diabetic, has no other significant past medical history. She did have a recent cough, otherwise no other complaints. Although she states that she did have some diarrhea today. No blood noted. Denies chest pain or shortness of breath she denies nausea, no vomiting. No rashes or meningismus. No dysuria. She is from 01/13/2018. REVIEW OF SYSTEMS: Constitutional: As above. Eyes: No discharge. ENT: No sore throat. Cardiovascular: No chest pain, no palpitations. Respiratory: As above. Gastrointestinal: As above Genitourinary: No hematuria. Musculoskeletal: No back pain. Skin: No rashes. Neurological: No headache. Allergies: Coded Allergies: No Known Drug Allergies (Verified , 07/22/18) Home Meds Reported Medications Metformin Hcl (METFORMIN HCL) 500 Mg Tablet, 2 TAB PO BID, TAB 07/22/18 Discontinued Reported Medications Levothyroxine Sodium (LEVOTHYROXINE SODIUM) 50 Mcg Tablet, 50 MCG PO QDAY, TAB 01/10/18 Vits W-Ca,Fe,Fa(<1MG) ( VITAMINS) 1 Each Tablet, 1 EACH PO DAILY, TAB 09/01/15 Discontinued Scripts Nifedipine (NIFEDIPINE ER) 60 Mg Tab.er.24, 60 MG PO QDAY, #45 TAB 1 Refill Prov:LUDY VELAZQUEZ DO 01/15/18 Oxycodone Hcl/Acetaminophen (PERCOCET 5-325 MG TABLET) 1 Each Tablet, 1 TAB PO Q4-6H PRN for pain, #30 TAB 0 Refills Prov:LIT SANCHES MD 01/13/18 Ibuprofen (IBUPROFEN) 800 Mg Tablet, 1 TAB PO Q8H PRN for pain, #30 TAB 0 Refills TAKE WITH FOOD EVERY 8 HOURS Prov:LIT SANCHES MD 01/13/18 Metformin Hcl (METFORMIN HCL) 500 Mg Tablet, 500 MG PO QDAY, #60 TAB 3 Refills Prov:LUDY VELAZQUEZ DO 10/13/15 Past Medical/Surgical History Patient has a past medical and surgical history of , , type II diabetes, depression. Reviewed Nurses Notes: Yes Hx Smoking: No Smoking Status: Never Smoker Exposure to Second Hand Smoke?: No Constitutional Vital Sign - Last 24 Hours 07/22/18 07/22/18 07/22/18 07/22/18 15:47 15:49 16:00 16:01 Temp 101.8 Pulse 120 192 Resp 34 B/P (MAP) 157/137 (144) 157/137 115/54 (74) Pulse Ox 90 77 O2 Delivery Room Air 07/22/18 07/22/18 07/22/18 07/22/18 16:15 16:16 16:30 17:00 Pulse 132 153 138 Resp 33 B/P (MAP) 114/60 (78) 106/60 (75) Pulse Ox 91 88 97 O2 Flow Rate 2.0 07/22/18 07/22/18 07/22/18 07/22/18 17:15 17:30 17:45 18:00 Pulse 124 115 107 B/P (MAP) 99/65 (76) 97/54 (68) Pulse Ox 96 95 95 07/22/18 07/22/18 07/22/18 07/22/18 18:30 18:43 18:45 19:00 Temp 98.8 Pulse 104 104 100 B/P (MAP) 87/45 (59) 91/54 (66) 93/59 (70) Pulse Ox 95 92 99 07/22/18 19:15 Pulse 95 B/P (MAP) 91/58 (69) Pulse Ox 94 Physical Exam General Appearance: The patient is alert, has no immediate need for airway protection and no signs of toxicity. Eyes: Pupils equal and round no pallor or injection. ENT, Mouth: Mucous membranes are moist. Mild erythema to the posterior oropharynx, no tonsillar hypertrophy or exudates. Respiratory: There are no retractions, mild rhonchi noted to the left lower lobe. Cardiovascular: Regular rate and rhythm. No murmurs, clicks or rubs. Gastrointestinal: Abdomen is round, soft mild tenderness to the left abdomen, mid axillary, along the costal margin. no masses, bowel sounds normal. Neurological: Alert and oriented 4. Moving all extremities. Following all commands. No focal neuro deficits. Skin: Warm and dry, no rashes. Musculoskeletal: Neck is supple non tender. Extremities are nontender, nonswollen and have full range of motion. DIFFERENTIAL DIAGNOSIS: After history and physical exam differential diagnosis was considered for adult fever including but not limited to viral syndromes including influenza, urinary tract infection, pneumonia and sepsis. Medical Decision Making Data Points Result Diagram: 07/22/18 1555 07/22/18 1555 Laboratory Hematology Test 07/22/18 15:55 07/22/18 16:29 07/22/18 17:30 07/22/18 18:04 Red Blood Count 5.07 M/uL (4.17-5.56) Mean Corpuscular Volume 82.7 fL (80.0-96.0) Mean Corpuscular Hemoglobin 28.0 pg (26.0-33.0) Mean Corpuscular Hemoglobin Concent 33.9 g/dL (32.0-36.0) Red Cell Distribution Width 14.7 % (11.5-14.5) Mean Platelet Volume 10.5 fL (7.2-11.1) Neutrophils (%) (Auto) 76.2 % (39.4-72.5) Lymphocytes (%) (Auto) 20.7 % (17.6-49.6) Monocytes (%) (Auto) 2.7 % (4.1-12.4) Eosinophils (%) (Auto) 0.1 % (0.4-6.7) Basophils (%) (Auto) 0.3 % (0.3-1.4) Nucleated RBC Relative Count (auto) 0.1 /100WBC Neutrophils # (Auto) 3.8 K/uL (2.0-7.4) Lymphocytes # (Auto) 1.0 K/uL (1.3-3.6) Monocytes # (Auto) 0.1 K/uL (0.3-1.0) Eosinophils # (Auto) 0.0 K/uL (0.0-0.5) Basophils # (Auto) 0.0 K/uL (0.0-0.1) Nucleated RBC Absolute Count (auto) 0.01 K/uL Sodium Level 139 mmol/L (137-145) Potassium Level 3.8 mmol/L (3.5-5.0) Chloride Level 103 mmol/L (98-107) Carbon Dioxide Level 17 mmol/L (22-31) Blood Urea Nitrogen 11 mg/dl (7-18) Creatinine 0.60 mg/dl (0.52-1.04) Glomerular Filtration Rate Calc > 60.0 Random Glucose 323 mg/dl (75-110) Calcium Level 9.0 mg/dl (8.4-10.2) Total Bilirubin 1.1 mg/dl (0.2-1.3) Aspartate Amino Transf (AST/SGOT) 32 U/L (0-35) Alanine Aminotransferase (ALT/SGPT) 20 U/L (0-56) Alkaline Phosphatase 160 U/L (0-126) Total Protein 6.7 g/dl (6.3-8.2) Albumin 4.0 g/dl (3.5-5.0) Human Chorionic Gonadotropin, Qual Negative (NEGATIVE) Influenza Virus Type A (PCR) Negative (NEGATIVE) Influenza Virus Type B (PCR) Negative (NEGATIVE) Urine Color Yellow Urine Clarity Clear Urine pH 5.0 pH (4.8-9.5) Urine Specific [place] 1.033 Urine Protein 100 mg/dL (NEGATIVE) Urine Glucose (UA) 500 mg/dL (NEGATIVE) Urine Ketones 80 mg/dL (NEGATIVE) Urine Blood Small (NEGATIVE) Urine Nitrite Negative (NEGATIVE) Urine Bilirubin Negative (NEGATIVE) Urine Urobilinogen Negative mg/dL (0.2-1.9) Urine Leukocyte Esterase Negative (NEGATIVE) Urine RBC 3 /HPF (0-2/HPF) Urine WBC 8 /HPF (0-5/HPF) Urine Squamous Epithelial Cells None /LPF (NONE-FEW) Urine Transitional Epithelial Cells Few /LPF (NONE-FEW) Urine Bacteria Few /HPF (NONE-FEW) Urine Granular Casts Few /LPF (NONE) Urine Mucus None /HPF (NONE-FEW) Lactate 1.9 mmol/L (0.7-2.1) Lipase 103 U/L (23-300) Chemistry Test 07/22/18 15:55 07/22/18 16:29 07/22/18 17:30 07/22/18 18:04 White Blood Count 5.0 k/uL (4.5-11.0) Red Blood Count 5.07 M/uL (4.17-5.56) Hemoglobin 14.2 g/dL (12.0-16.0) Hematocrit 41.9 % (34.0-47.0) Mean Corpuscular Volume 82.7 fL (80.0-96.0) Mean Corpuscular Hemoglobin 28.0 pg (26.0-33.0) Mean Corpuscular Hemoglobin Concent 33.9 g/dL (32.0-36.0) Red Cell Distribution Width 14.7 % (11.5-14.5) Platelet Count 124 K/uL (150-450) Mean Platelet Volume 10.5 fL (7.2-11.1) Neutrophils (%) (Auto) 76.2 % (39.4-72.5) Lymphocytes (%) (Auto) 20.7 % (17.6-49.6) Monocytes (%) (Auto) 2.7 % (4.1-12.4) Eosinophils (%) (Auto) 0.1 % (0.4-6.7) Basophils (%) (Auto) 0.3 % (0.3-1.4) Nucleated RBC Relative Count (auto) 0.1 /100WBC Neutrophils # (Auto) 3.8 K/uL (2.0-7.4) Lymphocytes # (Auto) 1.0 K/uL (1.3-3.6) Monocytes # (Auto) 0.1 K/uL (0.3-1.0) Eosinophils # (Auto) 0.0 K/uL (0.0-0.5) Basophils # (Auto) 0.0 K/uL (0.0-0.1) Nucleated RBC Absolute Count (auto) 0.01 K/uL Glomerular Filtration Rate Calc > 60.0 Calcium Level 9.0 mg/dl (8.4-10.2) Total Bilirubin 1.1 mg/dl (0.2-1.3) Aspartate Amino Transf (AST/SGOT) 32 U/L (0-35) Alanine Aminotransferase (ALT/SGPT) 20 U/L (0-56) Alkaline Phosphatase 160 U/L (0-126) Total Protein 6.7 g/dl (6.3-8.2) Albumin 4.0 g/dl (3.5-5.0) Human Chorionic Gonadotropin, Qual Negative (NEGATIVE) Influenza Virus Type A (PCR) Negative (NEGATIVE) Influenza Virus Type B (PCR) Negative (NEGATIVE) Urine Color Yellow Urine Clarity Clear Urine pH 5.0 pH (4.8-9.5) Urine Specific [place] 1.033 Urine Protein 100 mg/dL (NEGATIVE) Urine Glucose (UA) 500 mg/dL (NEGATIVE) Urine Ketones 80 mg/dL (NEGATIVE) Urine Blood Small (NEGATIVE) Urine Nitrite Negative (NEGATIVE) Urine Bilirubin Negative (NEGATIVE) Urine Urobilinogen Negative mg/dL (0.2-1.9) Urine Leukocyte Esterase Negative (NEGATIVE) Urine RBC 3 /HPF (0-2/HPF) Urine WBC 8 /HPF (0-5/HPF) Urine Squamous Epithelial Cells None /LPF (NONE-FEW) Urine Transitional Epithelial Cells Few /LPF (NONE-FEW) Urine Bacteria Few /HPF (NONE-FEW) Urine Granular Casts Few /LPF (NONE) Urine Mucus None /HPF (NONE-FEW) Lactate 1.9 mmol/L (0.7-2.1) Lipase 103 U/L (23-300) Urinalysis Test 07/22/18 17:30 Urine Color Yellow Urine Clarity Clear Urine pH 5.0 pH (4.8-9.5) Urine Specific [place] 1.033 Urine Protein 100 mg/dL (NEGATIVE) Urine Glucose (UA) 500 mg/dL (NEGATIVE) Urine Ketones 80 mg/dL (NEGATIVE) Urine Blood Small (NEGATIVE) Urine Nitrite Negative (NEGATIVE) Urine Bilirubin Negative (NEGATIVE) Urine Urobilinogen Negative mg/dL (0.2-1.9) Urine Leukocyte Esterase Negative (NEGATIVE) Urine RBC 3 /HPF (0-2/HPF) Urine WBC 8 /HPF (0-5/HPF) Urine Squamous Epithelial Cells None /LPF (NONE-FEW) Urine Transitional Epithelial Cells Few /LPF (NONE-FEW) Urine Bacteria Few /HPF (NONE-FEW) Urine Granular Casts Few /LPF (NONE) Urine Mucus None /HPF (NONE-FEW) EKG/Imaging EKG Interpretation 12 lead EKG: Time of EKG 1652. Rhythm: Sinus tachycardia, ventricular rate 139 BPM. Issue: normal QRS: normal ST segments: No ST depression or elevation identified. No previous EKGs for comparison. Imaging PATIENT NAME: Penny Gleason : 1980 MR: [id number] V: [id number] EXAM DATE: [id number] ORDERING PHYSICIAN: GUILHERME VIGIL TECHNOLOGIST: Location: [facility] Patient: Penny Gleason : 1980 Visit/Account:[id number] Date of Sevice: 07/22/2018 EXAMINATION: CT abdomen and pelvis with contrast COMPARISON: None. HISTORY: left sided abd pain, fevers, tachycardia PROCEDURE: Multiplanar contrast enhanced CT of the abdomen and pelvis with 75 mL intravenous Isovue 370. One of the following dose optimization techniques was utilized in the performance of this exam: Automated exposure control; adjustment of the mA and/or kV according to the patient's size; or use of an iterative reconstruction technique. Specific details can be referenced in the facility's radiology CT exam operational policy. FINDINGS: Visualized thorax: No acute findings. Liver: Negative. Gallbladder and biliary system: Negative Spleen: Negative. Pancreas: Negative. Adrenal glands: Negative. Kidneys and bladder: Left kidney heterogeneous regions of parenchymal inflammation and decreased parenchymal enhancement. Lung the posterior lower pole, adjacent to one of the regions of parenchymal inflammation is a 3.2 x 1.1 x 1.6 cm peripherally enhancing subcapsular collection. A small region of pare nchymal inflammation decreased enhancement is also present in the right kidney upper pole. No solid mass or hydronephrosis. Urinary bladder is unremarkable. Vessels: Negative. Bowel: Stomach, small bowel, and appendix are unremarkable. Minimal stool in the colon. No bowel inflammation. Pelvic organs: Negative. Lymph nodes: Mesenteric root mild lymph node enlargement and soft tissue strandi ng. Free air/free fluid: None. Musculoskeletal: Infraumbilical abdominal wall postoperative change. No acute findings. IMPRESSION: 1. Bilateral pyelonephritis. Left kidney lower pole 3.2 x 1.1 x 1.6 cm peripherally enhancing subcapsular fluid collection is concerning for developing abscess. 2. Mesenteric root edema and mild lymph node enlargement. This is nonspecific and the distribution is atypical for reactive change to the pyelonephritis; correlation with any evidence of a pancreatitis is recommended. Unless there is a clinical concern for malignancy, metastatic disease is considered unlikely. Mesenteric panniculitis is a possibility. Consider CT follow-up as clinically indicated. Results were discussed with GUILHERME VIGIL at 07/22/2018 6:56 PM. Report Dictated By: Jaron Martinez MD at 07/22/2018 6:47 PM Report E-Signed By: Jaron Martinez MD at 07/22/2018 6:59 PM WSN:[id number] PATIENT NAME: Penny Gleason : 1980 MR: [id number] V: [id number] EXAM DATE: ORDERING PHYSICIAN: GUILHERME VIGIL TECHNOLOGIST: Location: [facility] Patient: Penny Gleason : 1980 Visit/Account:[id number] Date of Sevice: 07/22/2018 Examination: CHEST PA LAT Comparison: None. History: Chills, fever, recent cough. Findings: Cardiac and hilar contour size is normal. Low lung volumes. No consolidation, nodule, or peribronchial inflammation. No pneumothorax, edema, or effusion. Visualized bowel gas pattern is unremarkable. Osseous structures are intact. IMPRESSION: No findings of acute cardiopulmonary disease. Report Dictated By: Jaron Martinez MD at 07/22/2018 4:55 PM Report E-Signed By: Jaron Martinez MD at 07/22/2018 4:57 PM WSN:[id number] ED Course/Re-evaluation Clinical Indication for ER IV: Hydration, IV Access ED Course The patient was admitted to room. A history and physical obtained. Differential diagnoses were considered. An IV was started. The patient was presumed septic, she was febrile, hypertensive and tachycardic. She was started on a 30 mL/kg saline bolus.CBC showing normal white count with a left shift, platelets 124, chemistry showing glucose 323, initial lactate 9.7, negative hCG, a follow-up lactate 2 hours later was 1.9, normal lipase. Negative influenza, urine showing specific gravity 1.033 proteinuria, ketonuria, showing few urine bacteria and granular casts. The two-view chest x-ray was negative for any acute cardiopulmonary process. This patient had mild tenderness to the left side, negative for pneumonia I did discuss this with the patient the director quality assurance line, I did recommend a CT of the abdomen and pelvis she was agreeable.CT of the abdomen and pelvis showing bilateral pyelonephritis, left worse than the right, there is a peripherally enhancing subcapsular fluid collection concerning for possible developing abscess. There is also mesenteric root edema and mild lymph node enlargement, could be consistent with reactive changes secondary to pyelonephritis. Possible mesenteric panniculitis. I did review the results with the patient again via director quality assurance line, she was started on antibiotics, given 3.375 Zosyn, significant improvement in patient's overall feeling per patient, temperature has come down to 98.8, heart rate is improved from the 130s down to around 100, blood pressure is mid 90 systolic, based on the patient's past history of elevated this is not an unusual finding. I did tell the patient that a hospital admission is advisable, she agrees, I did speak with Dr. Maurice Bartlett as noted below, she is accepted the patient is a hospitalist services. 07/22/2018 7:25:21 pm I did speak with Dr. Maurice Bartlett, the hospitalist on-call, she is accepted the patient in the hospitalist services for pyelonephritis. Decision to Disposition Date: July 22, 2018 Decision to Disposition Time: 19:25 Critical Care Time I spent a total of 30 minutes of critical care time in obtaining history, performing a physical exam, bedside monitoring of interventions, collecting and interpreting tests and discussion with consultants but not including time spent performing procedures. Depart Departure Latest Vital Signs Vital Signs Date Time Temp Pulse Resp B/P (MAP) Pulse Ox O2 Delivery O2 Flow Rate FiO2 07/22/18 19:15 95 91/58 (69) 94 07/22/18 18:43 98.8 07/22/18 16:30 33 07/22/18 16:16 2.0 07/22/18 15:49 Room Air Impression: Primary Impression: Sepsis Additional Impression: Pyelonephritis Condition: Improved Disposition: Admitted from ER Problem Qualifiers Primary Impression: Sepsis Sepsis type: sepsis due to unspecified organism Qualified Codes: A41.9 - Sepsis, unspecified organism GUILHERME VIGIL WINDOWS APPLICATION PACKAGER-BC July 22, 2018 16:22
--- NOTE | 2018-07-22 17:01 | RADIOLOGY IMAGING REPORT ---
FACILITY: [facility] [place] PATIENT NAME: Penny Gleason : 1980 MR: [id number] V: [id number] EXAM DATE: ORDERING PHYSICIAN: GUILHERME VIGIL TECHNOLOGIST: Location: [facility] [place] Patient: Penny Gleason : 1980 Visit/Account:[id number] Date of Sevice: 07/22/2018 Examination: CHEST PA LAT Comparison: None. History: Chills, fever, recent cough. Findings: Cardiac and hilar contour size is normal. Low lung volumes. No consolidation, nodule, or peribronchial inflammation. No pneumothorax, edema, or effusion. Visualized bowel gas pattern is unremarkable. Osseous structures are intact. IMPRESSION: No findings of acute cardiopulmonary disease. Report Dictated By: Jaron Martinez MD at 07/22/2018 4:55 PM Report E-Signed By: Jaron Martinez MD at 07/22/2018 4:57 PM WSN:[id number]
[2018-07-22] MEDS ORDERED: PIPERACILLIN/TAZO*3.375GM VIAL 3.375 GM in NS(*) 0.9% 100 ML MINI-BAG 100 ML IVPB ONE (17:30)
[2018-07-22] MEDS ORDERED: ALBUTEROL/IPRATROPIUM 3 ML NEB NEB ONE (17:35)
[2018-07-22] MEDS ORDERED: IOPAMIDOL 61% 100 ML INFUS BTL 0 ML ONE (17:47)
[2018-07-22] MEDS ORDERED: IOPAMIDOL 76% 100 ML INFUS BTL 100 ML ONE (17:49)
[2018-07-22] MEDS ORDERED: NS(*) 0.9% 1000 ML BAG 1,000 ML IV ONE (18:10)
--- NOTE | 2018-07-22 18:14 | EKG ---
FACILITY: [facility] [place] PATIENT NAME: BBO KAM : [id number] MR: [id number] V: [id number] EXAM DATE: ORDERING PHYSICIAN: GUILHERME VIGIL TECHNOLOGIST: ROYAL Test Reason : CP Blood Pressure : / mmHG Vent. Rate : 139 BPM Atrial Rate : 139 BPM P-R Int : 114 ms QRS Dur : 078 ms QT Int : 312 ms P-R-T Axes : 061 022 028 degrees QTc Int : 474 ms Sinus tachycardia Nonspecific ST and T wave abnormality Abnormal ECG No previous ECGs available Confirmed by LISA MONTANO ([id number]) on 07/23/2018 2:14:13 AM Referred By: Confirmed By:LISA MONTANO
--- NOTE | 2018-07-22 19:02 | RADIOLOGY IMAGING REPORT ---
FACILITY: [facility] [place] PATIENT NAME: Penny Gleason : 1980 MR: [id number] V: [id number] EXAM DATE: ORDERING PHYSICIAN: GUILHERME VIGIL TECHNOLOGIST: Location: [facility] [place] Patient: Penny Gleason : 1980 Visit/Account:[id number] Date of Sevice: 07/22/2018 EXAMINATION: CT abdomen and pelvis with contrast COMPARISON: None. HISTORY: left sided abd pain, fevers, tachycardia PROCEDURE: Multiplanar contrast enhanced CT of the abdomen and pelvis with 75 mL intravenous Isovue 3 70. One of the following dose optimization techniques was utilized in the performance of this exam: A utomated exposure control; adjustment of the mA and/or kV according to the patient's size; or use of an iterative reconstruction technique. Specific details can be referenced in the facility's radiolo gy CT exam operational policy. FINDINGS: Visualized thorax: No acute findings. Liver: Negative. Gallbladder and biliary system: Negative Spleen: Negative. Pancreas: Negative. Adrenal glands: Negative. Kidneys and bladder: Left kidney heterogeneous regions of parenchymal inflammation and decreased pare nchymal enhancement. Lung the posterior lower pole, adjacent to one of the regions of parenchymal inf lammation is a 3.2 x 1.1 x 1.6 cm peripherally enhancing subcapsular collection. A small region of pa renchymal inflammation decreased enhancement is also present in the right kidney upper pole. No solid mass or hydronephrosis. Urinary bladder is unremarkable. Vessels: Negative. Bowel: Stomach, small bowel, and appendix are unremarkable. Minimal stool in the colon. No bowel infl ammation. Pelvic organs: Negative. Lymph nodes: Mesenteric root mild lymph node enlargement and soft tissue stranding. Free air/free fluid: None. Musculoskeletal: Infraumbilical abdominal wall postoperative change. No acute findings. IMPRESSION: 1. Bilateral pyelonephritis. Left kidney lower pole 3.2 x 1.1 x 1.6 cm peripherally enhancing subcaps ular fluid collection is concerning for developing abscess. 2. Mesenteric root edema and mild lymph node enlargement. This is nonspecific and the distribution is atypical for reactive change to the pyelonephritis; correlation with any evidence of a pancreatitis is recommended. Unless there is a clinical concern for malignancy, metastatic disease is considered u nlikely. Mesenteric panniculitis is a possibility. Consider CT follow-up as clinically indicated. Results were discussed with GUILHERME VIGIL at 07/22/2018 6:56 PM. Report Dictated By: Jaron Martinez MD at 07/22/2018 6:47 PM Report E-Signed By: Jaron Martinez MD at 07/22/2018 6:59 PM WSN:[id number]
[2018-07-22] MEDS ORDERED: METF-450 PO (19:41)
[2018-07-22 21:01] VITALS: BP 92/60
[2018-07-22] MEDS ORDERED: NS(*) 0.9% 1000 ML BAG 1,000 ML IV PRN (21:44)
[2018-07-22] MEDS ORDERED: ACETAMINOPHEN 325 MG TAB PO PRN (21:45)
[2018-07-22] MEDS ORDERED: ONDANSETRON 4 MG/2 ML VIAL IVP PRN (21:45)
[2018-07-22] MEDS ORDERED: NS(*) 0.9% 500 ML BAG 500 ML IV ONE (21:50)
[2018-07-22] MEDS: INSULIN HUM LISPRO 100 UN/ML 3 ML VIAL SUBQ PRN (22:08)
--- NOTE | 2018-07-22 22:14 | History & Physical ---
History of Present Illness Chief Complaint Fever, chills, achiness, flank pain. History of Present Illness The patient is a 38 year old female with PMH significant for type II DM who presents with 4 days of fever and chills, achiness and flank pain. She denies recent dysuria. Kinyarwanda is the patient's primary language but she speaks Lao reasonably well. The patient denies previous urinary tract infections. She had a 6 months ago with her second child and has a 2 year old at home as well. She takes metformin 1000mg bid for her diabetes. She is otherwise healthy. History Problems: (1) Hx of section Status: Resolved Comment: X 2. (2) Type II diabetes mellitus Status: Chronic (3) Gestational hypertension Status: Resolved Home Meds Reported Medications Metformin Hcl (METFORMIN HCL) 500 Mg Tablet, 2 TAB PO BID, TAB 07/22/18 Discontinued Reported Medications Levothyroxine Sodium (LEVOTHYROXINE SODIUM) 50 Mcg Tablet, 50 MCG PO QDAY, TAB 01/10/18 Vits W-Ca,Fe,Fa(<1MG) ( VITAMINS) 1 Each Tablet, 1 EACH PO DAILY, TAB 09/01/15 Discontinued Scripts Nifedipine (NIFEDIPINE ER) 60 Mg Tab.er.24, 60 MG PO QDAY, #45 TAB 1 Refill Prov:LUDY VELAZQUEZ DO 01/15/18 Oxycodone Hcl/Acetaminophen (PERCOCET 5-325 MG TABLET) 1 Each Tablet, 1 TAB PO Q4-6H PRN for pain, #30 TAB 0 Refills Prov:LIT SANCHES MD 01/13/18 Ibuprofen (IBUPROFEN) 800 Mg Tablet, 1 TAB PO Q8H PRN for pain, #30 TAB 0 Refills TAKE WITH FOOD EVERY 8 HOURS Prov:LIT SANCHES MD 01/13/18 Metformin Hcl (METFORMIN HCL) 500 Mg Tablet, 500 MG PO QDAY, #60 TAB 3 Refills Prov:LUDY VELAZQUEZ DO 10/13/15 Allergies: Coded Allergies: No Known Drug Allergies (Verified , 07/22/18) Other Social/Family Hx The patient lives in [place] with her and 2 young children. She has a sister who also lives in [place]. Her parents and other siblings live in [facility]. Hx Smoking: No Smoking Status: Never Smoker Exposure to Second Hand Smoke?: No Hx Alcohol Use: No Hx Substance Use Disorder: No History of IV Drug Use: No Review of Systems All Systems Reviewed/Normal: Yes, Except as Noted Constitutional: Fever, Chills Respiratory: No Shortness of Breath, No Cough Gastrointestinal: No Nausea, No Vomiting Genitourinary: Other (Flank pain, L side.); No Dysuria Psychiatric: Depression (2 years ago. Resolved.) Exam Vital Signs Vital Signs Date Time Temp Pulse Resp B/P (MAP) Pulse Ox O2 Delivery O2 Flow Rate FiO2 07/22/18 21:15 92 07/22/18 21:01 98.5 92 14 92/60 (71) Room Air 07/22/18 16:16 2.0 General Appearance: Alert, Awake, No Acute Distress Neuro: No Gross deficits Eyes: PERRLA Cardiovascular: Regular Rate and Rhythm Respiratory: Clear to Auscultation GI: Other (Abdomen soft, BS +. Tender to palpation over L midabdomen and flank.) Lymph: Cervical Nodes Benign Extremities: Warm, Perfused Integumentary: Skin Intact without Lesion / Mass Psych: Appropriate Mood & Affect Medical Decision Making Data Points Result Diagram: 07/22/18 1555 07/22/18 1555 Item Value Date Time Random Glucose 323 mg/dl H 07/22/18 1555 Calcium Level 9.0 mg/dl 07/22/18 1555 Total Bilirubin 1.1 mg/dl 07/22/18 1555 Aspartate Amino Transf (AST/SGOT) 32 U/L 07/22/18 1555 Alanine Aminotransferase (ALT/SGPT) 20 U/L 07/22/18 1555 Alkaline Phosphatase 160 U/L H 07/22/18 1555 Total Protein 6.7 g/dl 07/22/18 1555 Albumin 4.0 g/dl 07/22/18 1555 Human Chorionic Gonadotropin, Qual Negative 07/22/18 1555 Lactate 9.7 mmol/L *H 07/22/18 1555 Lactate 1.9 mmol/L 07/22/18 1804 Lipase 103 U/L 07/22/18 1804 Urine Color Yellow 07/22/18 1730 Urine Clarity Clear 07/22/18 1730 Urine pH 5.0 pH 07/22/18 1730 Urine Specific [place] 1.033 07/22/18 1730 Urine Protein 100 mg/dL 07/22/18 1730 Urine Glucose (UA) 500 mg/dL 07/22/18 1730 Urine Ketones 80 mg/dL H 07/22/18 1730 Urine Blood Small 07/22/18 1730 Urine Nitrite Negative 07/22/18 1730 Urine Bilirubin Negative 07/22/18 1730 Urine Urobilinogen Negative mg/dL 07/22/18 1730 Urine Leukocyte Esterase Negative 07/22/18 1730 Urine RBC 3 /HPF 07/22/18 1730 Urine WBC 8 /HPF 07/22/18 1730 Urine Squamous Epithelial Cells None /LPF 07/22/18 1730 Urine Transitional Epithelial Cells Few /LPF 07/22/18 1730 Urine Bacteria Few /HPF 07/22/18 1730 Urine Granular Casts Few /LPF H 07/22/18 1730 Urine Mucus None /HPF 07/22/18 1730 Influenza Virus Type A (PCR) Negative 07/22/18 1629 Influenza Virus Type B (PCR) Negative 07/22/18 1629 Blood and urine cultures pending. EKG / Imaging EKG Interpretation [place] [facility] [place] NAME: BOB GLEASON : 1980 MR: [id number] V: [id number] EXAM DATE: ORDERING PHYSICIAN: GUILHERME VIGIL TECHNOLOGIST: ROYAL Test Reason : CP Blood Pressure : / mmHG Vent. Rate : 139 BPM Atrial Rate : 139 BPM P-R Int : 114 ms QRS Dur : 078 ms QT Int : 312 ms P-R-T Axes : 061 022 028 degrees QTc Int : 474 ms Sinus tachycardia Nonspecific ST and T wave abnormality Abnormal ECG No previous ECGs available Referred By: Confirmed By: 51 T: Imaging [place] [facility] [place] NAME: Bob Gleason : 1980 MR: [id number] V: [id number] EXAM DATE: ORDERING PHYSICIAN: GUILHERME VIGIL TECHNOLOGIST: [place] [facility] [place] : 1980 Visit/Account:[id number] Date of Sevice: 07/22/2018 EXAMINATION: CT abdomen and pelvis with contrast COMPARISON: None. HISTORY: left sided abd pain, fevers, tachycardia PROCEDURE: Multiplanar contrast enhanced CT of the abdomen and pelvis with 75 mL intravenous Isovue 370. One of the following dose optimization techniques was utilized in the performance of this exam: Automated exposure control; adjustment of the mA and/or kV according to the patient's size; or use of an iterative reconstruction technique. Specific details can be referenced in the facility's radiology CT exam operational policy. FINDINGS: Visualized thorax: No acute findings. Liver: Negative. Gallbladder and biliary system: Negative Spleen: Negative. Pancreas: Negative. Adrenal glands: Negative. Kidneys and bladder: Left kidney heterogeneous regions of parenchymal inflammation and decreased parenchymal enhancement. Lung the posterior lower p ole, adjacent to one of the regions of parenchymal inflammation is a 3.2 x 1.1 x 1.6 cm peripherally enhancing subcapsular collection. A small region of parenchymal inflammation decreased enhancement is also present in the right kidney upper pole. No solid mass or hydronephrosis. Urinary bladder is unremarkable. Vessels: Negative. Bowel: Stomach, small bowel, and appendix are unremarkable. Minimal stool in the colon. No bowel inflammation. Pelvic organs: Negative. Lymph nodes: Mesenteric root mild lymph node enlargement and soft tissue stranding. Free air/free fluid: None. Musculoskeletal: Infraumbilical abdominal wall postoperative change. No acute findings. IMPRESSION: 1. Bilateral pyelonephritis. Left kidney lower pole 3.2 x 1.1 x 1.6 cm peripherally enhancing subcapsular fluid collection is concerning for developing abscess. 2. Mesenteric root edema and mild lymph node enlargement. This is nonspecific and the distribution is atypical for reactive change to the pyelonephritis; correlation with any evidence of a pancreatitis is recommended. Unless there is a clinical concern for malignancy, metastatic disease is considered unlikely. Mesenteric panniculitis is a possibility. Consider CT follow-up as clinically indicated. Results were discussed with GUILHERME VIGIL at 07/22/2018 6:56 PM. Report Dictated By: Jaron Martinez MD at 07/22/2018 6:47 PM Report E-Signed By: Jaron Martinez MD at 07/22/2018 6:59 PM WSN:[id number] [place]AC[place] [facility] [place]IENT NAME: Bob Gleason : 1980 MR: [id number] V: [id number] EXAM DATE: [id number] ORDERING PHYSICIAN: GUILHERME VIGIL TECHNOLOGIST: [place] [facility] [place] : 1980 Visit/Account:[id number] Date of Sevice: 07/22/2018 Examination: CHEST PA LAT Comparison: None. History: Chills, fever, recent cough. Findings: Cardiac and hilar contour size is normal. Low lung volumes. No consolidation, nodule, or peribronchial inflammation. No pneumothorax, edema, or effusion. Visualized bowel gas pattern is unremarkable. Osseous structures are intact. IMPRESSION: No findings of acute cardiopulmonary disease. Report Dictated By: Jaron Martinez MD at 07/22/2018 4:55 PM Report E-Signed By: Jaron Martinez MD at 07/22/2018 4:57 PM WSN:[id number] Pre-Admit Course ED Medications Zofran, Zosyn, NS, Duoneb. Medical Record Review: Yes Assessment and Plan Problems: (1) Sepsis Status: Acute Assessment & Plan: The patient presented with tachycardia and elevated lactate. Initially her BP was normal but then dropped into the 80s and 90s systolic. She was given IV fluids and Zosyn in the ER. Blood and urine cultures are pending. Will continue Zosyn. Will continue IV fluids. CT showed bilateral pyelonephritis. Left kidney lower pole 3.2 x 1.1 x 1.6 cm peripherally enhancing subcapsular fluid collection was concerning for developing abscess. Will need to follow closely. (2) Pyelonephritis Status: Acute Assessment & Plan: With possible developing subcapsular abscess on the left. Will continue Zosyn and fluids. Will need to monitor closely. May need to repeat CT scan in a few days if she does not continue to improve clinically. (3) Type II diabetes mellitus Status: Chronic Assessment & Plan: The patient has been on metformin 1000mg bid at home. Will hold due to CT scan with contrast. She did present with significant lactic acidosis as well. Will order level II SSI. Monitor sugars AC/HS. Time Spent on Plan of Care: < 30 min Venous Thromboembolism Antithrombotics Is Pt On Any Antithrombotics?: Yes Exam Sepsis Risk: No Definite Risk Problem Qualifiers (1) Sepsis: Sepsis type: sepsis due to unspecified organism Qualified Codes: A41.9 - Sepsis, unspecified organism LISA ROBINS MD July 22, 2018 22:14
[2018-07-22] MEDS: PIPERACILLIN/TAZO*3.375GM VIAL 3.375 GM in NS(*) 0.9% 100 ML MINI-BAG 100 ML IVPB SCH (23:38)
[2018-07-23] VITALS (13 sets, daily range): BP systolic 84–107; BP diastolic 53–72; Ht 162.6 cm; Wt 87.1 kg
[2018-07-23] MEDS: PIPERACILLIN/TAZO*3.375GM VIAL 3.375 GM in NS(*) 0.9% 100 ML MINI-BAG 100 ML IVPB SCH ×2 (05:28→11:40)
[2018-07-23 06:32] LABS: PLATELET COUNT, AUTOMATED 69 K/uL (150-450)
[2018-07-23] MEDS: KCL (*) 20 MEQ/100 ML PREMIX 100 ML IV SCH ×2 (08:13→10:07)
[2018-07-23] MEDS ORDERED: ENOXAPARIN 40 MG/0.4ML SYR SC SCH (09:00)
--- NOTE | 2018-07-23 10:40 | Hospitalist Consultation ---
History of Present Illness Reason for Consult pyelonephritis History Unable To Obtain Past Medical: Home Meds Reported Medications Metformin Hcl (METFORMIN HCL) 500 Mg Tablet, 2 TAB PO BID, TAB 07/22/18 Discontinued Reported Medications Levothyroxine Sodium (LEVOTHYROXINE SODIUM) 50 Mcg Tablet, 50 MCG PO QDAY, TAB 01/10/18 Vits W-Ca,Fe,Fa(<1MG) ( VITAMINS) 1 Each Tablet, 1 EACH PO DAILY, TAB 09/01/15 Discontinued Scripts Nifedipine (NIFEDIPINE ER) 60 Mg Tab.er.24, 60 MG PO QDAY, #45 TAB 1 Refill Prov:LUDY VELAZQUEZ DO 01/15/18 Oxycodone Hcl/Acetaminophen (PERCOCET 5-325 MG TABLET) 1 Each Tablet, 1 TAB PO Q4-6H PRN for pain, #30 TAB 0 Refills Prov:LIT SANCHES MD 01/13/18 Ibuprofen (IBUPROFEN) 800 Mg Tablet, 1 TAB PO Q8H PRN for pain, #30 TAB 0 Refills TAKE WITH FOOD EVERY 8 HOURS Prov:LIT SANCHES MD 01/13/18 Metformin Hcl (METFORMIN HCL) 500 Mg Tablet, 500 MG PO QDAY, #60 TAB 3 Refills Prov:MARCUSLUDY BARNARD DO 10/13/15 Allergies: Coded Allergies: No Known Drug Allergies (Verified , 07/22/18) Patient History: Patient reports no known family medical history. Hx Smoking: No Smoking Status: Never Smoker Exposure to Second Hand Smoke?: No Hx Alcohol Use: No Hx Substance Use Disorder: No History of IV Drug Use: No Exam Vital Signs Vital Signs Date Time Temp Pulse Resp B/P (MAP) Pulse Ox O2 Delivery O2 Flow Rate FiO2 07/23/18 09:27 105 84/61 (69) 96 Nasal Cannula 2.0 07/23/18 09:15 28 07/23/18 09:14 99.1 Medical Decision Making Data Points Result Diagram: 07/23/1852107/23/18521 Assessment and Plan Condition I reviewed her CT scan images and I think she may have a drainable subcortical collection at the lower pole of the left kidney. Recommend consultation with IR at [facility] Time Spent on Plan of Care: > 30 min Venous Thromboembolism Antithrombotics Is Pt On Any Antithrombotics?: Yes Exam Sepsis Risk: Severe Sepsis Risk KATIA MENDOZA MD July 23, 2018 10:40
--- NOTE | 2018-07-23 11:43 | Hospitalist Depart ---
Discharge Summary Reason for Hosp/Final Diag: (1) Sepsis Status: Acute Hospital Course & Plan: The patient presented with tachycardia and elevated lactate. Initially her BP was normal but then dropped into the 80s and 90s systolic. She was given IV fluids and Zosyn in the ER. Blood and urine cultures are pending and growing GNR. Will continue Zosyn. Will continue IV fluids. Lactate decreased to 1.9 from 9[address] showed bilateral pyelonephritis. Left kidney lower pole 3.2 x 1.1 x 1.6 cm peripherally enhancing subcapsular fluid collection was concerning for developing abscess. Consulted Dr. Escobedo (Urology) who recommended transfer for interventional radiology as he felt this could be drained. She was moved to ICU this morning. She continued to get IV fluids and Zosyn. She will be transferred to [facility] Hospitalist service (Dr. Melita Delarosa) who has accepted the patient for Sepsis and will consult urology. (2) Pyelonephritis Status: Acute Hospital Course & Plan: With developing subcapsular abscess on the left. Will continue Zosyn and fluids. (3) Type II diabetes mellitus Status: Chronic Hospital Course & Plan: The patient has been on metformin 1000mg bid at home. Will hold due to CT scan with contrast. She did present with significant lactic acidosis as well. Will order level II SSI. Monitor sugars AC/HS. (4) Hypokalemia Status: Acute Hospital Course & Plan: She had potassium of 2.6 this morning. She received 2 K-Riders this morning. Continue to monitor. Departure Latest Vital Signs Vital Signs 07/23/18 07/23/18 07/23/18 07/23/18 09:14 09:15 09:27 10:00 Temp 99.1 Pulse 105 Resp 28 B/P (MAP) 84/61 (69) Pulse Ox 96 O2 Delivery Nasal Cannula O2 Flow Rate 3.0 Weight (Pounds): 192 Result Diagram: 07/23/1852107/23/18521 Condition: Critical Discharge: Other Facility Discharge Instructions Home Meds Reported Medications Metformin Hcl (METFORMIN HCL) 500 Mg Tablet, 2 TAB PO BID, TAB 07/22/18 Discontinued Reported Medications Levothyroxine Sodium (LEVOTHYROXINE SODIUM) 50 Mcg Tablet, 50 MCG PO QDAY, TAB 01/10/18 Vits W-Ca,Fe,Fa(<1MG) ( VITAMINS) 1 Each Tablet, 1 EACH PO DAILY, TAB 09/01/15 Discontinued Scripts Nifedipine (NIFEDIPINE ER) 60 Mg Tab.er.24, 60 MG PO QDAY, #45 TAB 1 Refill Prov:LUDY VELAZQUEZ DO 01/15/18 Oxycodone Hcl/Acetaminophen (PERCOCET 5-325 MG TABLET) 1 Each Tablet, 1 TAB PO Q4-6H PRN for pain, #30 TAB 0 Refills Prov:LIT SANCHES MD 01/13/18 Ibuprofen (IBUPROFEN) 800 Mg Tablet, 1 TAB PO Q8H PRN for pain, #30 TAB 0 Refill s TAKE WITH FOOD EVERY 8 HOURS Prov:LIT SANCHES MD 01/13/18 Metformin Hcl (METFORMIN HCL) 500 Mg Tablet, 500 MG PO QDAY, #60 TAB 3 Refills Prov:LUDY VELAZQUEZ DO 10/13/15 Venous Thromboembolism Antithrombotics Is Pt On Any Antithrombotics?: Yes Problem Qualifiers (1) Sepsis: Sepsis type: sepsis due to unspecified organism Qualified Codes: A41.9 - Sepsis, unspecified organism IZA MARCELINO RAIL OPERATOR July 23, 2018 11:43
[2018-07-23] MEDS: INSULIN HUM LISPRO 100 UN/ML 3 ML VIAL SUBQ PRN (12:08)
== END 2018-07-23 12:32 | disposition short-term general hospital (02) | DRG 872 ==
LOC: ER 16:00 → MED 19:50 → ICU 07-23 09:40
PROVIDERS: ADMIT Internal Medicine; ATTEND Internal Medicine
DX: A41.9 Sepsis, unspecified organism (principal); N10 Acute pyelonephritis; E87.2 Acidosis; K65.4 Sclerosing mesenteritis; E11.9 Type 2 diabetes mellitus without complications; E87.6 Hypokalemia; F32.9 Major depressive disorder, single episode, unspecified; Z79.84 Long term (current) use of oral hypoglycemic drugs
CPT/HCPCS: 36415; 36416; 71046; 74177; 81001; 82040; 82247; 82310; 82374; 82435; 82565; 82947; 82948; 83605; 83690; 84075; 84132; 84155; 84295; 84450; 84460; 84520; 84703; 85025; 86140; 87040; 87077; 87088; 87186; 87502; 93005; 96361; 96365; 96375; 99291; A4353; J1650; J2405; J2543; J3480; J7030; Q9967

== ENCOUNTER → 2018-07-23 | Outpatient (CLI) | payer SELFPAY ==
[2018-07-23 12:28] VITALS: BMI 33.0
== END ==
LOC: AMB 12:07
PROVIDERS: ATTEND Nurse Practitioner
DX: R10.84 Generalized abdominal pain (principal); R50.9 Fever, unspecified; R09.02 Hypoxemia
CPT/HCPCS: A0425; A0426